=== PATIENT | male | born 1945 | race Caucasian/White ===

== ENCOUNTER 2020-06-02 13:00 | Observation (INO) | payer MEDICARE, SELFPAY ==
[2020-06-02] VITALS (13 sets, daily range): BP systolic 143–206; BP diastolic 70–103; PULSE 60–73; RESP 13–20; TEMP 36.7–36.8; O2SAT 96–98; BMI 18.2; BMI 23.7
--- NOTE | 2020-06-02 13:02 | ECG_ITS ---
APPROVED REPORT Exam: Resting ECG HR:62 bpm ECG Measurements Heart Rate 62 AXES UT 198 P 43 QRSd 106 QRS -35 QT 462 T 43 QTc 468 Conclusion Normal sinus rhythm Left axis deviation,LAHB Abnormal ECG Electronically signed by : Mal Garcia, 06/05/2020 16:24:49
--- NOTE | 2020-06-02 13:13 | XR_ITS ---
PROCEDURE: XR CHEST 2V CLINICAL HISTORY: soa COMPARISON: No exams were available for comparison FINDINGS: The cardiomediastinal silhouette and pulmonary vascularity are within normal limits. The lungs are clear without infiltrates, suspicious nodules, or pleural effusions. 5 mm nodular opacity is present in the left apex and may be due to a granuloma. There is some minimal left apical pleural thickening nonspecific. IMPRESSION: No acute findings. Dictated by: Blayne Alonzo MD 06/02/2020 15:15 Blayne Alonzo MD in [place] 06/02/2020 15:15
--- NOTE | 2020-06-02 13:14 | HMH.EDGENADL ---
ED Disposition Clinical Impression: Hypertensive emergency, Dizziness Disposition: Admitted As Inpatient Condition on Discharge: Good - Critical Care Critical Care Time: No Attestation: On , the high probability of a clinically significant, sudden or life threatening deterioration of the following system(s) required my full and direct attention, intervention and personal management. The time I documented below is in addition to time spent performing reported procedures but includes the following listed in this critical care notation. Medical Decision Making - Medical Records Medical records reviewed: Yes: I reviewed the patient's medical records. - [place] Inquiry Pt receiving controlled substance: No Vital Signs: 06/02/20 13:00 06/02/20 13:30 06/02/20 14:00 Temperature 98.1 F Temperature Source Oral Pulse Rate [Left Radial] 68 69 63 Respiratory Rate 13 20 Blood Pressure [Right Arm] 200/99 H 178/81 H 156/70 H Blood Pressure Mean [Right Arm] 132 113 98 Blood Pressure Source [Right Arm] Automatic Cuff Automatic Cuff Blood Pressure Position [Right Arm] Sitting Sitting 02 Sat by Pulse Oximetry 96 96 Oxygen Delivery Method Room Air Room Air 06/02/20 14:59 06/02/20 15:43 06/02/20 16:24 Temperature Temperature Source Pulse Rate [Left Radial] 61 61 60 Respiratory Rate 18 18 18 Blood Pressure [Right Arm] 143/73 H 169/92 H 170/87 H Blood Pressure Mean [Right Arm] 96 117 114 Blood Pressure Source [Right Arm] Automatic Cuff Automatic Cuff Automatic Cuff Blood Pressure Position [Right Arm] Sitting Sitting 02 Sat by Pulse Oximetry 96 97 98 Oxygen Delivery Method Room Air Room Air Room Air 06/02/20 19:28 06/02/20 20:07 Temperature Temperature Source Pulse Rate [Left Radial] 65 73 Respiratory Rate 16 18 Blood Pressure [Right Arm] 192/86 H 206/103 H Blood Pressure Mean [Right Arm] 121 137 Blood Pressure Source [Right Arm] Blood Pressure Position [Right Arm] 02 Sat by Pulse Oximetry 98 96 Oxygen Delivery Method Room Air Room Air - Lab Data Lab results reviewed: Yes: I reviewed the patient's lab results. Lab Results 06/02/20 13:45: WBC 6.8, RBC 5.48, Hgb 15.7, Hct 48.6, MCV 88.6, MCH 28.6, MCHC 32.3, RDW 13.1, Plt Count 126 L, MPV 10.0, Neut % (Auto) 78.8, Lymph % (Auto) 13.5, [place] % (Auto) 5.1, Eos % (Auto) 2.0, Baso % (Auto) 0.6, Neut # (Auto) 5.4, Lymph # (Auto) 0.9, [place] # (Auto) 0.4, Eos # (Auto) 0.1, Baso # (Auto) 0.0 06/02/20 13:45: Sodium 140, Potassium 4.8, Chloride 106, Carbon Dioxide 27, Anion Gap 11.8, BUN 20, Creatinine 1.60 H, Estimated Creat Clear 31, Estimated GFR 42 L, Est GFR ( Amer) 51 L, Glucose 104 H, Calcium 9.9, Total Bilirubin 0.5, AST 57, ALT 60, Alkaline Phosphatase 62, Troponin I < 0.01, Total Protein 7.4, Albumin 4.4, Globulin 3.0, Albumin/Globulin Ratio 1.5 06/02/20 16:11: Sodium 141, Potassium 5.0, Chloride 107, Carbon Dioxide 27, Anion Gap 12.0, BUN 19, Creatinine 1.50 H, Estimated Creat Clear 33, Estimated GFR 46 L, Est GFR ( Amer) 55 L, Glucose 102 H, Calcium 9.5, Troponin I 0.03 06/02/20 18:12: Troponin I 0.04 H Result diagrams: 06/02/20 13:45 06/02/20 16:11 Orders (Tests/Meds): ED MEDICATIONS Discontinued Medications Generic Name Dose Route Start Last Admin Trade Name Freq PRN Reason Stop Dose Admin Hydralazine HCl 10 mg 06/02/20 13:13 06/02/20 13:25 Hydralazine 20mg/Ml Vial IV 06/02/20 13:14 10 mg ONCE ONE Administration Hydralazine HCl 10 mg 06/02/20 20:02 06/02/20 20:04 Hydralazine 10mg Tablet PO 06/02/20 20:03 10 mg ONCE ONE Administration Lactated Ringer's 500 mls @ 999 mls/hr 06/02/20 14:30 06/02/20 18:11 Lactated Ringer's 1000 Ml Bag IV 06/02/20 15:00 Not Given .Q31M DENYS Sodium Chloride 1,000 mls @ 999 mls/hr 06/02/20 14:45 06/02/20 15:02 Sod Chlor 0.9% 1000ml Bag IV 06/02/20 15:45 999 mls/hr .Q1H1M DENYS Administration ORDERS Category Date Time Status Covid-19 IgG/Ig
[2020-06-02 13:51] LABS: Basophils % 0.6 % (0.1-2.0); Eosinophils # 0.1 K/mm3 (0.0-0.4); Hematocrit 48.6 % (42.0-52.0); Hemoglobin 15.7 g/dL (14.1-18.0); Lymphocytes # 0.9 K/mm3 (0.7-4.5); Lymphocytes % 13.5 % (10-50); Mean Corpuscular HGB Conc 32.3 g/dL (31.8-35.4); Mean Corpuscular Hemoglobin 28.6 pg (27.0-31.2); Mean Corpuscular Volume 88.6 fl (80-94); Monocytes # 0.4 K/mm3 (0.1-1.0); Monocytes % 5.1 % (1.7-9.3); Neutrophils # 5.4 K/mm3 (1.8-7.8); Neutrophils % 78.8 % (37.0-80.0); Platelet Count 126 K/mm3 (142-424); Red Blood Count 5.48 M/mm3 (4.60-6.20); Red Cell Distribution Width 13.1 % (11.5-17.5); White Blood Count 6.8 K/mm3 (4.8-10.8)
[2020-06-02 14:00] LABS: Alanine Aminotransferase 60 U/L (12-78); Albumin Level 4.4 g/dl (3.5-5.0); Albumin/Globulin Ratio 1.5 (1.1-1.8); Alkaline Phosphatase 62 U/L (38-126); Anion Gap 11.8 mEq/L (5-15); Aspartate Amino Transferase 57 U/L (17-59); Bilirubin,Total 0.5 mg/dl (0.2-1.3); Blood Urea Nitrogen 20 mg/dl (9-20); Calcium 9.9 mg/dl (8.4-10.2); Carbon Dioxide 27 mmol/L (22.0-30.0); Chloride 106 mmol/L (98-107); Creatinine Clearance Estimated 31 mL/min (50-200); Estimated Glomerular Filt Rate 42 ml/min (>60); GFR (African American) 51 ML/MIN (>60); Glucose 104 mg/dl (74-100); Potassium 4.8 mmoL/L (3.5-5.1); Sodium 140 mmol/L (136-145); Total Protein,Serum 7.4 g/dl (6.3-8.2)
[2020-06-02 14:13] LABS: Troponin I < 0.01 ng/ml (0.00-0.034)
[2020-06-02 16:22] LABS: Chloride 107 mmol/L (98-107)
[2020-06-02 16:23] LABS: Sodium 141 mmol/L (136-145)
[2020-06-02 16:25] LABS: Blood Urea Nitrogen 19 mg/dl (9-20); Creatinine Clearance Estimated 33 mL/min (50-200); Estimated Glomerular Filt Rate 46 ml/min (>60); GFR (African American) 55 ML/MIN (>60)
[2020-06-02 16:26] LABS: Calcium 9.5 mg/dl (8.4-10.2); Carbon Dioxide 27 mmol/L (22.0-30.0); Glucose 102 mg/dl (74-100)
[2020-06-02 16:38] LABS: Troponin I 0.03 ng/ml (0.00-0.034)
--- NOTE | 2020-06-02 16:59 | ECG_ITS ---
APPROVED REPORT Exam: Resting ECG HR:59 bpm ECG Measurements Heart Rate 59 AXES CO 192 P 31 QRSd 104 QRS -39 QT 496 T 19 QTc 491 Conclusion Sinus bradycardia Left axis deviation,LAHB Pulmonary disease pattern Incomplete right bundle branch block Prolonged QT Abnormal ECG Electronically signed by : Mal Garcia, 06/05/2020 16:21:16
[2020-06-02 18:42] LABS: Troponin I 0.04 ng/ml (0.00-0.034)
--- NOTE | 2020-06-02 20:07 | PC.NURSE ---
RN medicated pt per MD request for BP
--- NOTE | 2020-06-02 20:08 | PC.NURSE ---
consulting with Dr Baptiste
[2020-06-02 20:35] LABS: Coronavirus 19 IgG Antibody Negative (Negative); Coronavirus 19 IgM Antibody Negative (Negative)
--- NOTE | 2020-06-02 22:07 | PC.NURSE ---
patient arrived to floor via wheelchair @ 21:03.
[2020-06-02 23:49] LABS: Troponin I 0.11 ng/ml (0.00-0.034)
[2020-06-03] VITALS (7 sets, daily range): BP systolic 142–175; BP diastolic 62–85; PULSE 60–78; RESP 16–18; TEMP 36.8–37; O2SAT 95–100; BMI 23.8
--- NOTE | 2020-06-03 03:35 | PC.NURSE ---
Pt A&O this shift, Lung sounds clear BLT throughout, Bowel sounds present in all 4 quadrants. Pt has a history of chronic pain, Pt has complained of Lt sided pain during shift, Medications given per MAR, Pt had a period of dry heaving and nausea nothing noted in emesis bag, Pt medicated per MAR, IV patent and intact running at 75mL/hr. Pt gets up ab carlitos to go to the bathroom on his own.
--- NOTE | 2020-06-03 03:43 | PC.NURSE ---
Pt has slept throughout the shift, Pt is A&O to person, birthdate, age, and year, pt does not know he is in the hospital. Lung sounds clear, bowel sounds present in all 4 quadrant. Pt's B/P are stable during this shift. IV intact and patent, LR running @50ml/hr, Pt able to walk to go to bathroom, bed alarm on to assist with IV pole, Pt has voided yellow urine during shift
--- NOTE | 2020-06-03 06:40 | PC.NURSE ---
Lab at bedside drawing blood
[2020-06-03 07:33] LABS: Basophils % 0.4 % (0.1-2.0); Chloride 108 mmol/L (98-107); Eosinophils # 0.1 K/mm3 (0.0-0.4); Eosinophils % 1.2 % (0.1-12.0); Hematocrit 46.1 % (42.0-52.0); Hemoglobin 15.7 g/dL (14.1-18.0); Lymphocytes # 1.5 K/mm3 (0.7-4.5); Lymphocytes % 15.7 % (10-50); Mean Corpuscular Hemoglobin 29.2 pg (27.0-31.2); Mean Corpuscular Volume 85.9 fl (80-94); Mean Platelet Volume 10.4 fl (7.4-10.4); Monocytes # 0.6 K/mm3 (0.1-1.0); Neutrophils # 7.4 K/mm3 (1.8-7.8); Neutrophils % 76.6 % (37.0-80.0); Platelet Count 142 K/mm3 (142-424); Red Blood Count 5.36 M/mm3 (4.60-6.20); Red Cell Distribution Width 13.9 % (11.5-17.5); Sodium 138 mmol/L (136-145); White Blood Count 9.7 K/mm3 (4.8-10.8)
[2020-06-03 07:34] LABS: Potassium 4.2 mmoL/L (3.5-5.1)
[2020-06-03 07:36] LABS: Blood Urea Nitrogen 19 mg/dl (9-20); Creatinine Clearance Estimated 48 mL/min (50-200); Estimated Glomerular Filt Rate 50 ml/min (>60); GFR (African American) 60 ML/MIN (>60)
[2020-06-03 07:37] LABS: Anion Gap 10.2 mEq/L (5-15); Calcium 9.3 mg/dl (8.4-10.2); Carbon Dioxide 24 mmol/L (22.0-30.0); Glucose 91 mg/dl (74-100); Magnesium 1.7 mg/dl (1.6-2.3)
--- NOTE | 2020-06-03 09:14 | HMH.PHAVTE ---
[facility] VTE Monitoring - Patient Demographics Admission date: 06/02/20 Report Date: 06/03/20 Time: 09:14 Allergies/Adverse Reactions: Patient Allergies No Known Allergies Allergy (Verified 06/02/20 13:20) Height: 1.75 m Weight: 72.802 kg Patient Problems: Current Active Problems Hypertensive emergency (Acute) Dizziness (Acute) - VTE Risk Labs: VTE Related Lab Results Hgb 15.7 g/dL (14.1-18.0) 06/03/20 06:45 Hct 46.1 % (42.0-52.0) 06/03/20 06:45 Plt Count 142 K/mm3 (142-424) 06/03/20 06:45 BUN 19 mg/dl (9-20) 06/03/20 06:45 Creatinine 1.40 mg/dl (0.66-1.25) H 06/03/20 06:45 Estimated Creat Clear 48 mL/min (50-200) 06/03/20 06:45 - Prophylaxis VTE Prophylaxis Ordered?: Yes Types of VTE Prophylaxis: TEDS Knee High, Pharmacological Location of Applied Device: Bilateral Lower Extremeties Pharmacologic Type: Enoxaparin
--- NOTE | 2020-06-03 10:17 | HMH.PHAINT ---
MEDICATION RECONCILIATION COMPLETED ON PATIENT USING EXTERNAL FILL HISTORY FROM PHARMACY. -KARI ISABEL, DESTINEED
--- NOTE | 2020-06-03 10:17 | HMH.HP ---
*Admission Date: 06/02/20 *Chief complaint: dizzyness *History of present illness: this pt who is resident of [facility] had episode of dizzyness and elevated bp w/o chest pain or syncope - he was seen in the ed -t states that he started feeling dizzy like the room was going black and he went to the floor, staff at [facility] [place] took his blood pressure it was up to SBP 200s. Denies any injury This is a 75-year-old male with a history of major depressive disorder in a long-term facility for this, history of hypertension, heart disease presenting after a vague episode of generalized weakness that occurred briefly at his facility prior to arrival. Patient states that he lost his 3 weeks ago and has been under much stress because of this and has had several episodes of anxiety. He presents essentially asymptomatic here. No fever, chills, nausea, vomiting, headache, blurry vision, double vision, numbness, tingling, chest pain, cough, focal weakness, abdominal pain. He did have some shortness of breath earlier but this has resolved. No suicidal or homicidal ideation. -year-old male presenting with dizziness. Hypertensive on arrival and bradycardic requiring total of 20 mg of IV hydralazine for blood pressure control. White blood cell count, glucose, electrolytes are nonactionable. EKG shows left axis deviation but no evidence of acute ischemia. Troponin has been trending up from undetectable to 0.03 and then 0.04. Patient is still hypertensive although this is improved. Chest x-ray is negative for acute disease. Given his symptoms and his elevated blood pressure and troponin, will admit for hypertensive emergency further work-up and management. Patient remained stable in my care.pt was admitted for treatment and eval [facility] History I have reviewed the patient's past medical history: Yes Medical History: Reports:: Hypertension Denies:: Diabetes Mellitus Type 1, Diabetes Mellitus Type 2 *Have you ever received a pneumonia vaccine?: No *Have you received a flu vaccine this season?: No Other Surgeries: Yes: No Previous Surgery - *Social History Last grade of school completed: Some college Smoking Status: Never smoker Alcohol Intake: never *Occupational Status:: retired *Travel in the last 8 weeks: None Family Hx:: Unable to obtain Review of Systems - Review of Systems Review of systems:: pertinent systems reviewed and negative unless documented below - Constitutional Denies fever(s) - Eyes Denies change in vision - ENT Denies pain with swallowing - *Cardiovascular Denies chest pain - *Respiratory Denies cough - *Gastrointestinal Denies abdominal pain - *Genitourinary Denies blood in urine - *Musculoskeletal Denies joint pain - Integumentary/Breasts Denies rash - *Neurologic Reports dizziness, Denies localized weakness, Denies seizure-like activity - Psychiatric Reports anxiety Meds Home Medications Medication Instructions Recorded Confirmed Type Apixaban [Eliquis] 5 mg PO BID 06/02/20 06/02/20 History Donepezil HCl [Donepezil ODT 10mg] 10 mg PO DAILY 06/02/20 06/02/20 History Fenofibrate Nanocrystallized 48 mg PO DAILY 06/02/20 06/02/20 History [Fenofibrate] Metoprolol Succinate [Metoprolol 100 mg PO DAILY 06/02/20 06/02/20 History Succinate 100mg Tablet*] Mirtazapine 30 mg PO HS 06/02/20 06/03/20 History Oxybutynin Chloride [Ditropan Xl] 5 mg PO TID 06/02/20 06/02/20 History buPROPion HCL [Wellbutrin SR 75mg 75 mg PO BID 06/02/20 06/02/20 History Tablet] lisinopriL [Lisinopril 40mg Tablet] 40 mg PO DAILY 06/02/20 06/02/20 History Amiodarone HCl [Cordarone 200mg 200 mg PO DAILY 06/03/20 06/03/20 History tablet] Allergies Allergy/AdvReac Type Severity Reaction Status Date / Time No Known Allergies Allergy Verified 06/02/20 13:20 Exam Vital signs and Labs for Last 24 Hours: Temp Pulse Resp BP Pulse Ox 98.6 F 68 16 150/78 H 97 06/03/20 08:00 06/03
--- NOTE | 2020-06-03 16:50 | PC.NURSE ---
PT IS RESTING IN BED. PT HAS BEEN AMBULATING AROUND THE ROOM AND TO THE BATHROOM. NO COMPLAINTS OF DISCOMFORT. PT REQUESTED TO HAVE ALL OF HIS MEDICATIONS THAT HE USUALLY TAKES ON A DAILY BASIS. NOTIFIED PCP AND HE STATED IT WOULD BE OKAY TO ORDER PT'S HOME MEDICATIONS. PT STATES HE HAS A BIG PROBLEM WITH DEPRESSION SINCE HIS . PT HAS ANSWERED ALL QUESTIONS APPROPRIATELY. LUNG SOUNDS CLEAR. ABDOMEN SOFT WITH ACTIVE BOWEL SOUNDS. VSS. WILL CONTINUE TO MONITOR.
[2020-06-04] VITALS (8 sets, daily range): BP systolic 123–148; BP diastolic 65–84; PULSE 61–90; RESP 14–20; TEMP 36.2–36.9; O2SAT 95–99; BMI 23.3
--- NOTE | 2020-06-04 05:59 | PC.NURSE ---
shift summary, no acute changes since prior assesment, pt has rested well t/o shift, systolic BP was 175 at beginning of shift, has been 123-148 the other two vital checks, HR has been 60-80, pt has ambulated to bathroom independently, when pt ambulates to bathroom he disconnects his IV and leaves it hanging on the pole, fluids have been found all over the floor twice this shift, pt admits to disconnecting IV, pt educated on importance of ringing out to go to the bathroom and for assistance with his pole so his IV does not have to be disconnected, pt acknowledges understanding
[2020-06-04 06:13] LABS: Basophils % 0.4 % (0.1-2.0); Eosinophils # 0.1 K/mm3 (0.0-0.4); Eosinophils % 1.4 % (0.1-12.0); Hematocrit 46.7 % (42.0-52.0); Hemoglobin 15.9 g/dL (14.1-18.0); Lymphocytes # 1.6 K/mm3 (0.7-4.5); Lymphocytes % 17.1 % (10-50); Mean Corpuscular Hemoglobin 29.6 pg (27.0-31.2); Mean Corpuscular Volume 87.1 fl (80-94); Mean Platelet Volume 10.6 fl (7.4-10.4); Monocytes # 0.5 K/mm3 (0.1-1.0); Monocytes % 5.6 % (1.7-9.3); Neutrophils # 7.1 K/mm3 (1.8-7.8); Neutrophils % 75.5 % (37.0-80.0); Platelet Count 150 K/mm3 (142-424); Red Blood Count 5.36 M/mm3 (4.60-6.20); Red Cell Distribution Width 13.9 % (11.5-17.5); White Blood Count 9.4 K/mm3 (4.8-10.8)
[2020-06-04 06:23] LABS: Anion Gap 14.1 mEq/L (5-15); Blood Urea Nitrogen 25 mg/dl (9-20); Calcium 9.4 mg/dl (8.4-10.2); Carbon Dioxide 21 mmol/L (22.0-30.0); Chloride 108 mmol/L (98-107); Creatinine Clearance Estimated 44 mL/min (50-200); Estimated Glomerular Filt Rate 46 ml/min (>60); GFR (African American) 55 ML/MIN (>60); Glucose 99 mg/dl (74-100); Magnesium 1.7 mg/dl (1.6-2.3); Potassium 4.1 mmoL/L (3.5-5.1); Sodium 139 mmol/L (136-145)
[2020-06-04 06:40] LABS: T4 (Thyroxine) 11.9 ug/dl (5.53-11.0)
[2020-06-04 06:53] LABS: Thyroid Stimulating Hormone 1.23 uIU/mL (0.465-4.68)
--- NOTE | 2020-06-04 14:30 | HMH.DCSUM ---
General - General Admission date:: 06/02/20 Discharge date: 06/04/20 HPI HPI: this pt who is resident of [facility] had episode of dizzyness and elevated bp w/o chest pain or syncope - he was seen in the ed -t states that he started feeling dizzy like the room was going black and he went to the floor, staff at [facility] took his blood pressure it was up to SBP 200s. Denies any injury This is a 75-year-old male with a history of major depressive disorder in a long-term facility for this, history of hypertension, heart disease presenting after a vague episode of generalized weakness that occurred briefly at his facility prior to arrival. Patient states that he lost his 3 weeks ago and has been under much stress because of this and has had several episodes of anxiety. He presents essentially asymptomatic here. No fever, chills, nausea, vomiting, headache, blurry vision, double vision, numbness, tingling, chest pain, cough, focal weakness, abdominal pain. He did have some shortness of breath earlier but this has resolved. No suicidal or homicidal ideation. -year-old male presenting with dizziness. Hypertensive on arrival and bradycardic requiring total of 20 mg of IV hydralazine for blood pressure control. White blood cell count, glucose, electrolytes are nonactionable. EKG shows left axis deviation but no evidence of acute ischemia. Troponin has been trending up from undetectable to 0.03 and then 0.04. Patient is still hypertensive although this is improved. Chest x-ray is negative for acute disease. Given his symptoms and his elevated blood pressure and troponin, will admit for hypertensive emergency further work-up and management. Patient remained stable in my care.pt was admitted for treatment and eval Hospital Course Hospital Course: And had a peak blood pressure of 206/103. Upon initial presentation he had some dizziness. He was maintained on metoprolol and amiodarone. His blood pressures subsequently normalized. On the day of his discharge his systolic pressure was in the high 120s, low 140s. He had no chest pain, no focal neurologic deficits. There was no dyspnea. There was no altered mental status. Patient relays that he recently lost his and is experiencing profound grief. Was noted to have a renal insufficiency with a creatinine 1.5-1.6 range. He did have elevated troponins, EKG was without ischemic features and he had no chest pain or dyspnea while here. He has been up out of bed, ambulating about the room. He is in no distress and answers questions appropriately. Objective Vital signs: Temp Pulse Resp BP Pulse Ox 98.2 F 90 16 128/84 96 06/04/20 11:49 06/04/20 12:00 06/04/20 11:49 06/04/20 11:49 06/04/20 11:49 no acute distress - *Routine HEENT Exam Head: Present: normocephalic Eye: Present: EOMI, PERRL ENT: Present: mucous membranes moist - *Routine Neck Exam Present: supple - *Routine Respiratory Exam Present: CTA bilaterally - *Routine Cardiovascular Exam Present: RRR, murmur - *Routine Abdominal Exam Present: soft, normoactive bowel sounds. Absent: tenderness - *Routine Extremities Exam Absent: cyanosis, clubbing, edema - *Routine Skin Exam Present: warm. Absent: rash Results Labs on day of discharge: Labs from last 24 hours 06/04/20 06/04/20 06:00 06:00 WBC 9.4 RBC 5.36 Hgb 15.9 Hct 46.7 MCV 87.1 MCH 29.6 MCHC 34.0 RDW 13.9 Plt Count 150 MPV 10.6 H Neut % (Auto) 75.5 Lymph % (Auto) 17.1 [place] % (Auto) 5.6 Eos % (Auto) 1.4 Baso % (Auto) 0.4 Neut # (Auto) 7.1 Lymph # (Auto) 1.6 [place] # (Auto) 0.5 Eos # (Auto) 0.1 Baso # (Auto) 0.0 Sodium 139 Potassium 4.1 Chloride 108 H Carbon Dioxide 21 L Anion Gap 14.1 BUN 25 H D Creatinine 1.50 H Estimated Creat Clear 44 Estimated GFR 46 L Est GFR ( Amer) 55 L Glucose 99 Calcium 9.4 Magnesium 1.7 TSH 1.
--- NOTE | 2020-06-04 15:50 | PC.NURSE ---
PT IS RESTING IN BED. NO COMPLAINTS OF DISCOMFORT. PT HAS BEEN AMBULATING TO THE BATHROOM AND AROUND THE ROOM. PT HAS MADE SEVERAL COMMENTS THIS SHIFT ABOUT HOW [facility] ( PT STATES THE PLACE CANNOT KEEP HELP THERE AND ALL THEY CARE ABOUT IS GETTING MONEY) WAS GOING TO DISCHARGE PT THIS SHIFT BUT STATED YESTERDAY THAT PT WOULD NEED TO STAY TILL FRIDAY FOR ECHO AND TO SEE CARDIOLOGY. LUNG SOUNDS CLEAR. ABDOMEN SOFT/ NON TENDER WITH ACTIVE BOWEL SOUNDS. PT STATED HE HAD A BOWEL MOVEMENT THIS MORNING. VSS. SHOWER AND LINEN CHANGE THIS SHIFT. WILL CONTINUE TO MONITOR.
[2020-06-05] VITALS (22 sets, daily range): BP systolic 101–182; BP diastolic 48–98; PULSE 50–83; RESP 17–20; TEMP 36.7–36.9; O2SAT 92–100; BMI 23.7
--- NOTE | 2020-06-05 | IR_ITS ---
APPROVED REPORT Patient Location: Inpatient PROCEDURES Left heart catheterization Left ventriculogram Selective coronary angiogram INDICATION Acute non-ST elevation myocardial infarction Informed consent was obtained prior to the procedure. COMPLICATIONS NONE Estimated Blood Loss: LESS THAN 10 ML TECHNIQUE One percent lidocaine used to anesthetize the right anterior aspect of the wrist. The right radial artery was accessed via the Seldinger technique. A 6 Azerbaij[place] sheath was placed in the right radial artery. 2.5 mg of verapamil, 800 mcg of nitroglycerin, 1mg Lidocaine and 5000 U Heparin were given through the arterial sheath. The Poppa catheter was also used to perform left heart catheterization, left ventriculogram and selective coronary angiogram. At the end of the procedure the sheath was removed good hemostasis was achieved using Traclet band, patient was transferred to the postop holding area in stable condition. ANGIOGRAPHIC RESULTS The left main artery Normal The left anterior descending artery Has proximal smooth 10 to 20% stenosis in the mid vessel 20 to 30% stenosis The circumflex artery Nondominant yet still large and normal The right coronary artery dominant and normal The CAIN ventriculogram reveals Normal 65% The left ventricular end-diastolic pressure 10 mmHg IMPRESSION Mild nonflow-limiting coronary disease as described above Normal ejection fraction Normal left ventricular end-diastolic pressure PLAN 1. Medical management Electronically signed by : Logan France, 06/05/2020 10:37:16
--- NOTE | 2020-06-05 04:40 | PC.NURSE ---
shift summary, no acute changes since prior assessment, pt complained of nausea one time this shift and was treated per MAR, systolic BP 137-139, HR 61-70, pt has had no complaints of SOA or chest pain, pt has ambulated to bathroom multiple times this shift
--- NOTE | 2020-06-05 07:52 | HMH.CNCARD ---
History of Present Illness Consult date: 06/05/20 Requesting physician: Augustine Baptiste Consult reason: atrial fibrillation, shortness of breath Chief complaint: Elevated troponins, A. fib, SOA Additional Medical History:: 1. Hypertension 2. Hyperlipidemia 3. History of paroxysmal atrial fibrillation A. On Eliquis therapy 4. Major depression related to the of his earlier this year 5. CKD, stage 3 with Cr 1.4-1.6 and GFR 42-50 History of present illness: this pt who is resident of [facility] had episode of dizzyness and elevated bp w/o chest pain or syncope - he was seen in the ed -t states that he started feeling dizzy like the room was going black and he went to the floor, staff at [facility] took his blood pressure it was up to SBP 200s. Denies any injury This is a 75-year-old male with a history of major depressive disorder in a long-term facility for this, history of hypertension, heart disease presenting after a vague episode of generalized weakness that occurred briefly at his facility prior to arrival. Patient states that he lost his 3 weeks ago and has been under much stress because of this and has had several episodes of anxiety. He presents essentially asymptomatic here. No fever, chills, nausea, vomiting, headache, blurry vision, double vision, numbness, tingling, chest pain, cough, focal weakness, abdominal pain. He did have some shortness of breath earlier but this has resolved. No suicidal or homicidal ideation. -year-old male presenting with dizziness. Hypertensive on arrival and bradycardic requiring total of 20 mg of IV hydralazine for blood pressure control. White blood cell count, glucose, electrolytes are nonactionable. EKG shows left axis deviation but no evidence of acute ischemia. Troponin has been trending up from undetectable to 0.03 and then 0.04. Patient is still hypertensive although this is improved. Chest x-ray is negative for acute disease. Given his symptoms and his elevated blood pressure and troponin, will admit for hypertensive emergency further work-up and management. Patient remained stable in my care.pt was admitted for treatment and eval The above per Dr. Baptiste Patient is somewhat of a difficult historian and that he feels like most of his symptoms are related to anxiety and constipation. After multiple questions patient does admit to some shortness of breath with exertion along with some discomfort in his shoulders and back that resolves with rest. He denies chest pain, pressure or tightness. Patient denies tobacco use or history of diabetes. EKG on admission shows sinus rhythm, left axis deviation, incomplete right bundle branch block with no acute ST segment changes. Initial troponins within normal limits x2 and then elevated to 0.04, 0.11 and 0.10. [facility] History Medical History: Reports:: Hypertension Denies:: Diabetes Mellitus Type 1, Diabetes Mellitus Type 2 *Have you ever received a pneumonia vaccine?: No *Have you received a flu vaccine this season?: No Other Surgeries: Yes: No Previous Surgery - *Social History Last grade of school completed: Some college Smoking Status: Never smoker Alcohol Intake: never *Occupational Status:: retired *Travel in the last 8 weeks: None Family Hx:: Unable to obtain Meds Home Medications Medication Instructions Recorded Confirmed Type Apixaban [Eliquis] 5 mg PO BID 06/02/20 06/02/20 History Donepezil HCl [Donepezil ODT 10mg] 10 mg PO DAILY 06/02/20 06/02/20 History Fenofibrate Nanocrystallized 48 mg PO DAILY 06/02/20 06/02/20 History [Fenofibrate] Metoprolol Succinate [Metoprolol 100 mg PO DAILY 06/02/20 06/02/20 History Succinate 100mg Tablet*] Mirtazapine 30 mg PO HS 06/02/20 06/03/20 History Oxybutynin Chloride [Ditropan Xl] 5 mg PO TID 06/02/20 06/02/20 History buPROPion HCL [Wellbutrin SR 75mg 75 mg PO BID 06/02/20 06/02/20 History Tablet] lisinopriL [Lisinopril 40mg Tablet] 40 mg PO DAILY 06/02/20
--- NOTE | 2020-06-05 08:00 | CA_ITS ---
APPROVED REPORT EXAM: Comprehensive 2D, Doppler, and color-flow Echocardiogram Dump Motorman: Chelsea Anderson RDCS Ht: 5 ft 8 in Wt: 160lbs BSA: 1.86 BP: 130/80 mmHg Indications: Hyperlipidemia, Hypertension/HDD 2D Dimensions LVOT 2.37 cm (M/F) 1.5-2.5 M-Mode Dimensions RVDd 3.12 cm (0.9-2.6) LA Diam 4.80 cm (1.9-4.0) LVDd 5.36 cm (3.5-5.7) Ao Diam 3.77 cm (2.0-3.7) LVDs 4.64 cm (3.5-5.7) IVSd 0.95 cm (0.6-1.1) PWd 1.10 cm (0.6-1.1) EF (Teich) 28.50% FS 13.40% EDV (Teich) 138.90 mL ESV (Teich) 99.30 mL LV Diastology E Decel Time 380.00 (160-240 msec) E/A Ratio 0.59 MED E' 4.70 (< 7 cm/sec) E'/MED E' Ratio 10.94 (>14) LAT E' 8.10 (<10 cm/sec) E/LAT E' Ratio 6.35 (>14) Aortic Valve AI PHT 527.00 ms Mitral Valve MV E Max Km. 51.00 (40-130 cm/s) MV A Velocity 87.00 (40-130 cm/s) E/A Ratio 0.59 MV Decel. Time 380.00 (160-240 ms) MV PHT 111.00 ms Left Ventricle Left atrium is mildly enlarged, left ventricle is normal size, mild concentric left ventricular hypertrophy, visually estimated ejection fraction 55% with no regional wall motion abnormality, grade 1 diastolic dysfunction seen without tissue Doppler evidence of raise left atrial pressure. Right Ventricle Right atrium and right ventricle are normal size and contractility. Aortic Valve Aortic valve is thickened and calcified, there is no aortic stenosis, there is mild aortic insufficiency. Mitral Valve Mitral valve is grossly normal, there is mild mitral regurgitation. Tricuspid Valve Tricuspid valve is grossly normal, there is mild tricuspid regurgitation, tricuspid regurgitation jet velocity is inadequate for calculation of the right ventricular systolic pressure. Pulmonic Valve Pulmonic valve is poorly visualized. Great Vessels Aortic root is normal size. Pericardium No significant pericardial effusion noted. Conclusion 1. Mildly enlarged left atrium, normal left ventricular size, mild concentric left ventricular hypertrophy, visually estimated ejection fraction 55% with no regional wall motion abnormality, grade 1 diastolic dysfunction seen without tissue Doppler evidence of raise left atrial pressure. 2. Mild aortic, mild mitral and tricuspid regurgitation. 3. No significant pericardial effusion noted. Electronically signed by : Isidro Smiley, 06/06/2020 05:14:39
--- NOTE | 2020-06-05 08:33 | PC.NURSE ---
dr. garcias and [facility] both notified of elevated b/p. no new orders at this time
--- NOTE | 2020-06-05 10:03 | PC.NURSE ---
PT TO PRODUCTION LEAD AT THIS TIME, REPORT GIVEN TO SHANNAN PATRICIA RN
--- NOTE | 2020-06-05 10:48 | PC.NURSE ---
REPORT RECEIVED FROM Blue DE RN FROM INCIDENT HANDLER. PT DID NOT RECEIVE ANY STENTS, STABLE AT THIS TIME. 103/64 B/P, HR 70, 92% O2 SAT ON ROOM AIR, REPORTS PT IS DROWSY
--- NOTE | 2020-06-05 11:23 | PC.NURSE ---
BLOOD PRESSURES REPORTED POST HEART CATH, ORDERS FOR NORVASC 5MG PO X 1 DOSE FOR B/P PER Loida VAN. EDWAR
[2020-06-05 11:33] LABS: Basophils % 0.4 % (0.1-2.0); Eosinophils # 0.1 K/mm3 (0.0-0.4); Eosinophils % 1.4 % (0.1-12.0); Hemoglobin 15.5 g/dL (14.1-18.0); Lymphocytes # 1.4 K/mm3 (0.7-4.5); Lymphocytes % 13.3 % (10-50); Mean Corpuscular HGB Conc 33.7 g/dL (31.8-35.4); Mean Corpuscular Hemoglobin 29.2 pg (27.0-31.2); Mean Corpuscular Volume 86.7 fl (80-94); Monocytes # 0.6 K/mm3 (0.1-1.0); Monocytes % 5.7 % (1.7-9.3); Neutrophils # 8.1 K/mm3 (1.8-7.8); Neutrophils % 79.4 % (37.0-80.0); Platelet Count 147 K/mm3 (142-424); Red Cell Distribution Width 13.6 % (11.5-17.5); White Blood Count 10.3 K/mm3 (4.8-10.8)
--- NOTE | 2020-06-05 13:51 | HMH.DCSUM ---
General - General Admission date:: 06/02/20 Discharge date: 06/05/20 HPI HPI: this pt who is resident of [facility] had episode of dizzyness and elevated bp w/o chest pain or syncope - he was seen in the ed -t states that he started feeling dizzy like the room was going black and he went to the floor, staff at [facility] took his blood pressure it was up to SBP 200s. Denies any injury This is a 75-year-old male with a history of major depressive disorder in a long-term facility for this, history of hypertension, heart disease presenting after a vague episode of generalized weakness that occurred briefly at his facility prior to arrival. Patient states that he lost his 3 weeks ago and has been under much stress because of this and has had several episodes of anxiety. He presents essentially asymptomatic here. No fever, chills, nausea, vomiting, headache, blurry vision, double vision, numbness, tingling, chest pain, cough, focal weakness, abdominal pain. He did have some shortness of breath earlier but this has resolved. No suicidal or homicidal ideation. -year-old male presenting with dizziness. Hypertensive on arrival and bradycardic requiring total of 20 mg of IV hydralazine for blood pressure control. White blood cell count, glucose, electrolytes are nonactionable. EKG shows left axis deviation but no evidence of acute ischemia. Troponin has been trending up from undetectable to 0.03 and then 0.04. Patient is still hypertensive although this is improved. Chest x-ray is negative for acute disease. Given his symptoms and his elevated blood pressure and troponin, will admit for hypertensive emergency further work-up and management. Patient remained stable in my care.pt was admitted for treatment and eval Hospital Course Hospital Course: pt has did well and had elevated troponin and was seen by [facility] complaint: Elevated troponins, A. fib, SOA Additional Medical History:: 1. Hypertension 2. Hyperlipidemia 3. History of paroxysmal atrial fibrillation A. On Eliquis therapy 4. Major depression related to the of his earlier this year 5. CKD, stage 3 with Cr 1.4-1.6 and GFR 42-50 History of present illness: this pt who is resident of [facility] had episode of dizzyness and elevated bp w/o chest pain or syncope - he was seen in the ed -t states that he started feeling dizzy like the room was going black and he went to the floor, staff at [facility] took his blood pressure it was up to SBP 200s. Denies any injury This is a 75-year-old male with a history of major depressive disorder in a long-term facility for this, history of hypertension, heart disease presenting after a vague episode of generalized weakness that occurred briefly at his facility prior to arrival. Patient states that he lost his 3 weeks ago and has been under much stress because of this and has had several episodes of anxiety. He presents essentially asymptomatic here. No fever, chills, nausea, vomiting, headache, blurry vision, double vision, numbness, tingling, chest pain, cough, focal weakness, abdominal pain. He did have some shortness of breath earlier but this has resolved. No suicidal or homicidal ideation. -year-old male presenting with dizziness. Hypertensive on arrival and bradycardic requiring total of 20 mg of IV hydralazine for blood pressure control. White blood cell count, glucose, electrolytes are nonactionable. EKG shows left axis deviation but no evidence of acute ischemia. Troponin has been trending up from undetectable to 0.03 and then 0.04. Patient is still hypertensive although this is improved. Chest x-ray is negative for acute disease. Given his symptoms and his elevated blood pressure and troponin, will admit for hypertensive emergency further work-up and management. Patient remained stable in my care.pt was admitted for treatment and eval The above per Dr. Baptiste Patient is somewhat of a difficul
--- NOTE | 2020-06-05 15:32 | PC.NURSE ---
va at dr. garcias's office notified of increased b/p since heart cath and after norvasc 5mg around 1140. pt has discharge order in place, states she will let dr. garcias know.
--- NOTE | 2020-06-05 15:42 | PC.NURSE ---
[facility] notified of increased b/p s/p heart cath. orders for repeat dose of norvasc 5mg po at this time, order faxed to pharmacy
--- NOTE | 2020-06-05 15:52 | PC.NURSE ---
radial traclet removed at this time with rain doss rn. site unremarkable. no swelling, minimal bruising at site. radial pulse easily palpable 2+. site cleansed with chloraprep, sterile 2x2 and tegaderm applied
--- NOTE | 2020-06-05 16:55 | PC.NURSE ---
dr. senior supervisor contact and service clerks for julián at this time. reported continued elevated b/p after repeat dose of norvasc. reported that pt has discharge order to return to [facility]. states discharge order to be delayed at this time. dr. senior should see julián in about 1 hour at a med staff meeting and will inform of concerns. no new orders at this time
== END 2020-06-05 18:50 | disposition home or self-care (01) ==
LOC: ER 20:23 → 2ND 20:27
PROVIDERS: Internal Medicine; Admitting Provider Emergency Medicine; Emergency Provider Physician Assistant; PCP Emergency Medicine; Visit Provider Emergency Medicine
DX: I16.1 Hypertensive emergency (principal); I12.9 Hypertensive chronic kidney disease with stage 1 through stage 4 chronic kidney disease, or unspecified chronic kidney disease; I48.0 Paroxysmal atrial fibrillation; Z79.01 Long term (current) use of anticoagulants; N18.30 Chronic kidney disease, stage 3 unspecified; E03.9 Hypothyroidism, unspecified; Z79.899 Other long term (current) drug therapy
CPT/HCPCS: 36415; 71046; 80048; 80053; 83735; 84436; 84443; 84484; 85025; 86328; 93005; 93306; 93458; 96365; 96366; 99152; 99284; C1725; C1769; G0378; J1644; J2405; Q9967

== ENCOUNTER → 2020-06-13 10:58 | Outpatient (CLI) | payer MEDICARE, SELFPAY ==
[2020-06-13 11:38] LABS: Alanine Aminotransferase 50 U/L (12-78); Albumin Level 4.2 g/dl (3.5-5.0); Alkaline Phosphatase 65 U/L (38-126); Aspartate Amino Transferase 41 U/L (17-59); Bilirubin,Direct 0.1 mg/dl (0.0-0.4); Bilirubin,Indirect 0.4 mg/dL (0.0-0.9); Bilirubin,Total 0.5 mg/dl (0.2-1.3); Bilirubin,Unconjugated 0.5 mg/dL (0.0-1.1); Chol/HDL Ratio 4.2 (1-3.5); Cholesterol 167 mg/dl (140-200); HDL Cholesterol 40 mg/dl (40-60); Triglycerides 370 mg/dl (30-150); VLDL Cholesterol 74 mg/dL (0-40)
[2020-06-13 11:50] LABS: Direct LDL Cholesterol 97.61 mg/dL (100-129)
== END ==
PROVIDERS: Visit Provider Urology
DX: E78.5 Hyperlipidemia, unspecified (principal); I10 Essential (primary) hypertension; I25.10 Atherosclerotic heart disease of native coronary artery without angina pectoris; N28.9 Disorder of kidney and ureter, unspecified
CPT/HCPCS: 36415; 80061; 80076

== ENCOUNTER → 2021-03-13 11:19 | Outpatient (CLI) | payer MEDICARE, SELFPAY ==
--- NOTE | 2021-03-13 11:26 | XR_ITS ---
PROCEDURE: XR CHEST 2V CLINICAL HISTORY: on amio therapy COMPARISON: CR XR CHEST 2V from 06/02/2020 FINDINGS: The cardiomediastinal silhouette and pulmonary vascularity are within normal limits. The lungs are clear without infiltrates, suspicious nodules, or pleural effusions. No change small left apical nodule Mild thoracic kyphosis unchanged IMPRESSION: No change with no acute finding Dictated by: Blayne Alonzo MD 03/13/2021 12:28 Blayne Alonzo MD in [facility] 03/13/2021 12:28
[2021-03-13 12:42] LABS: Alanine Aminotransferase 41 U/L (12-78); Albumin Level 4.3 g/dl (3.5-5.0); Alkaline Phosphatase 67 U/L (38-126); Aspartate Amino Transferase 56 U/L (17-59); Bilirubin,Direct 0.7 mg/dl (0.0-0.4); Bilirubin,Total 0.7 mg/dl (0.2-1.3); Total Protein,Serum 7.2 g/dl (6.3-8.2)
[2021-03-13 13:02] LABS: Free Thyroxine Index 3.2 ug/dL (5.93-13.13); T4 (Thyroxine) 8.9 ug/dl (5.53-11.0); Triiodothryronine (T3) Uptake 36 % (23.5-40.5)
[2021-03-13 13:15] LABS: Thyroid Stimulating Hormone 1.91 uIU/mL (0.465-4.68)
== END ==
PROVIDERS: PCP Emergency Medicine; Visit Provider Physician Assistant
DX: I10 Essential (primary) hypertension (principal); I25.10 Atherosclerotic heart disease of native coronary artery without angina pectoris; I48.0 Paroxysmal atrial fibrillation; Z79.899 Other long term (current) drug therapy
CPT/HCPCS: 36415; 71046; 80076; 84436; 84443; 84479

== ENCOUNTER 2021-03-30 12:55 | Day surgery (SDC) | payer MEDICARE, SELFPAY ==
[2021-03-30 13:01] VITALS: BMI 25.5
--- NOTE | 2021-03-30 13:11 | HMH.ANESCL ---
[facility] Anesthesia Checklist - Patient Identification Patient Identification: Arm Band - Structural Data Admitted From: Home Planned Operative Procedure/s: Cardioversion Consent for Planned Operative Procedure(s) Verified: Yes - NPO Status Verified Time NPO: 00:00 - Airway Assessment C-Spine Mobility Assessed: Yes TMJ Mobility Assessed: Yes Dentition: Dentures-poor fitting - Neurological Assessment Level of Consciousness: Awake Hx Seizures: No Numbness or tingling in extremities: No - Anesthesia Plan Anesthesia Risk discussed: Yes Anesthesia Plan: Verified ASA Class: III Anesthesia Type: MAC [facility] History I have reviewed the patient's past medical history: Yes Medical History: Reports:: Atrial Fibrillation, Coronary Artery Disease, Hypertension Denies:: Diabetes Mellitus Type 1, Diabetes Mellitus Type 2 *Have you ever received a pneumonia vaccine?: No *Have you received a flu vaccine this season?: No Anesthesia experience/problems:: None Other Surgeries: Yes: No Previous Surgery - *Social History Smoking Status: Never smoker Alcohol Intake: never Substance Use Type: denies use *Occupational Status:: retired *Travel in the last 8 weeks: None Family Hx:: Unable to obtain
[2021-03-30 13:35] VITALS: BP 186/123; PULSE 85; RESP 18; TEMP 36.9; O2SAT 96
[2021-03-30 13:43] VITALS: PULSE 67
[2021-03-30 14:15] VITALS: BP 133/71; PULSE 59; O2SAT 94
--- NOTE | 2021-03-30 15:28 | HMH.CARDIO ---
[facility] Cardioversion Date: 03/30/21 Provider:: ROSY Mckenna Procedure Performed:: Synchronized electrical cardioversion Diagnosis:: Atrial fibrillation Procedure Summary:: Patient was brought to the cardiac [facility] as an outpatient. After informed consent was obtained patient was given IV sedation per anesthesia. Once the patient was sedated a single 200 J shock was delivered which did initially convert the patient to sinus rhythm but within 5 minutes he did return to atrial fibrillation. Ultimately unsuccessful cardioversion. Patient tolerated the procedure without complications. Complications:: None Conculsion:: Unsuccessful attempt at maintaining sinus rhythm after cardioversion. Amiodarone/Cordarone will be discontinued. Metoprolol will be used for rate control. He will continue Eliquis therapy.
== END 2021-03-30 14:35 | disposition home or self-care (01) ==
LOC: CATHLAB 12:57
PROVIDERS: PCP Emergency Medicine; Visit Provider Internal Medicine Cardiovascular Disease
DX: I48.0 Paroxysmal atrial fibrillation (principal)
CPT/HCPCS: 92960

== ENCOUNTER → 2021-09-06 15:53 | Outpatient (CLI) | payer MEDICARE, SELFPAY ==
--- NOTE | 2021-09-06 16:10 | ECG_ITS ---
APPROVED REPORT Exam: Resting ECG HR:67 bpm ECG Measurements Heart Rate 67 AXES NM 182 P 32 QRSd 113 QRS -30 QT 419 T 12 QTc 434 Conclusion SINUS RHYTHM POSSIBLE LEFT ATRIAL ENLARGEMENT [-0.1mV P-WAVE IN V1/V2] BORDERLINE LEFT AXIS DEVIATION [QRS AXIS < -20] S1-S2-S3 PATTERN, CONSISTENT WITH PULMONARY DISEASE, RVH, OR NORMAL VARIANT INCOMPLETE RIGHT BUNDLE BRANCH BLOCK [90+ ms QRS DURATION, TERMINAL R IN V1/V2, 40+ ms S IN I/aVL/V4/V5/V6] POSSIBLE LEFT VENTRICULAR HYPERTROPHY [VOLTAGE CRITERIA PLUS LAE OR QRS WIDENING] ABNORMAL ECG UNCONFIRMED REPORT Electronically signed by : Solomon Lambert MD 09/06/2021 19:29:02
[2021-09-06 16:59] LABS: Microscopic, Urine URINE MICROSCOPIC (MICROSCOPIC)
[2021-09-06 17:13] LABS: Appearance,Urine CLEAR (Clear); Blood, Urine Negative (Negative); Color,Urine YELLOW (Yellow); Glucose,Urine (UA) Negative (Negative); Ketones,Urine Negative (Negative); Leukocyte Esterase,Urine Negative (Negative); Nitrate,Urine Negative (Negative); PH,Urine 5.5 (5.0-8.5); Protein,Urine Negative (Negative); Specific Gravity, Urine >= 1.030 (1.005-1.030)
[2021-09-06 17:14] LABS: Bilirubin,Urine Negative (Negative); Chloride 107 mmol/L (98-107); Potassium 4.6 mmoL/L (3.5-5.1); Sodium 137 mmol/L (136-145)
[2021-09-06 17:16] LABS: Blood Urea Nitrogen 45 mg/dl (9-20); Estimated Glomerular Filt Rate 33 ml/min (>60); GFR (African American) 40 ML/MIN (>60)
[2021-09-06 17:17] LABS: Alanine Aminotransferase 25 U/L (12-78); Albumin Level 4.3 g/dl (3.5-5.0); Albumin/Globulin Ratio 1.5 (1.1-1.8); Alkaline Phosphatase 61 U/L (38-126); Anion Gap 11.6 mEq/L (5-15); Aspartate Amino Transferase 44 U/L (17-59); Basophils # 0.1 K/mm3 (0-0.2); Basophils % 0.7 % (0.1-2.0); Bilirubin,Total 0.9 mg/dl (0.2-1.3); Calcium 9.1 mg/dl (8.4-10.2); Carbon Dioxide 23 mmol/L (22.0-30.0); Eosinophils # 0.1 K/mm3 (0.0-0.4); Globulin 2.9 g/dL (1.3-3.2); Glucose 80 mg/dl (74-100); Hematocrit 46.6 % (42.0-52.0); Hemoglobin 14.9 g/dL (14.1-18.0); Lymphocytes # 1.1 K/mm3 (0.7-4.5); Lymphocytes % 13.3 % (10-50); Mean Corpuscular Hemoglobin 28.2 pg (27.0-31.2); Mean Corpuscular Volume 88.2 fl (80-94); Mean Platelet Volume 10.7 fl (7.4-10.4); Monocytes # 0.5 K/mm3 (0.1-1.0); Neutrophils # 6.3 K/mm3 (1.8-7.8); Platelet Count 154 K/mm3 (142-424); Red Blood Count 5.28 M/mm3 (4.60-6.20); Total Protein,Serum 7.2 g/dl (6.3-8.2)
[2021-09-06 17:24] LABS: Amphetamine/Metha Screen,Urine Negative ng/ml (<1000)
[2021-09-06 17:25] LABS: Barbiturates Screen,Urine Negative ng/ml (<200)
[2021-09-06 17:26] LABS: Benzodiazepines Screen,Urine Positive ng/ml (<200); Cocaine Screen,Urine Negative ng/ml (<300)
[2021-09-06 17:27] LABS: Methadone Screen,Urine Negative ng/ml (<300)
[2021-09-06 17:28] LABS: Cannabinoid Screen,Urine Negative ng/ml (<50); Opiate Screen,Urine Negative ng/ml (<300)
[2021-09-06 17:29] LABS: Phencyclidine Screen,Urine Negative ng/ml (<25)
[2021-09-06 17:34] LABS: Troponin I < 0.01 ng/ml (0.00-0.034)
[2021-09-06 17:35] LABS: T4 (Thyroxine) 5.9 ug/dl (5.53-11.0)
[2021-09-06 17:42] LABS: Bacteria,Urine Trace /lpf; Squamous Epithelial Cell,Urine Occasional #/hpf (0-5); WBC,Urine Occasional #/hpf (0-3)
[2021-09-06 17:48] LABS: Thyroid Stimulating Hormone 1.99 uIU/mL (0.465-4.68)
== END ==
PROVIDERS: PCP Emergency Medicine; Visit Provider Nurse Practitioner
DX: Z20.822 Contact with and (suspected) exposure to COVID-19 (principal); F29 Unspecified psychosis not due to a substance or known physiological condition; Z79.899 Other long term (current) drug therapy
CPT/HCPCS: 36415; 80053; 80305; 81001; 84436; 84443; 84484; 85025; 93005; C9803; U0003; U0005

== ENCOUNTER 2021-11-15 14:07 | Emergency (ER) | payer MEDICARE, SELFPAY ==
[2021-11-15 13:59] VITALS: BP 125/66; PULSE 74; RESP 16; TEMP 36.9; O2SAT 97; BMI 22.6
--- NOTE | 2021-11-15 14:10 | CT_ITS ---
FINAL REPORT TECHNIQUE: Axial CT images were obtained through the facial bones/sinuses. Coronal reformats were obtained. This study was performed with techniques to keep radiation doses as low as reasonably achievable (ALARA). Individualized dose reduction techniques using automated exposure control or adjustment of mA and/or kV according to the patient's size were employed. CLINICAL HISTORY: trauma FINDINGS: There is no acute fracture. The orbits are intact. The globes are unremarkable. There is mild mucoperiosteal thickening in the right cell of the sphenoid sinus. There is no soft tissue abnormality. IMPRESSION: No acute process. Reviewed, Interpreted and Dictated by Anam Henson MD Transcribed by Robin Zamora Authenticated by Anam Henson MD on 11/15/2021 03:27:54 PM [facility]
--- NOTE | 2021-11-15 14:10 | CT_ITS ---
FINAL REPORT TECHNIQUE: Axial CT images were performed through the head. Coronal reformatted images were submitted. This study was performed with techniques to keep radiation doses as low as reasonably achievable (ALARA). Individualized dose reduction techniques using automated exposure control or adjustment of mA and/or kV according to the patient's size were employed. CLINICAL HISTORY: trauma FINDINGS: There is moderate atrophy. There is decreased attenuation in the deep white matter probably due to chronic microvascular ischemia. The ventricles are normal in size. There is no evidence of hemorrhage. There is no mass or edema identified. There is no abnormal extra-axial fluid seen. The sinuses are well aerated. There is no acute osseous abnormality. IMPRESSION: Atrophy and chronic microvascular ischemia. No acute intracranial process. Reviewed, Interpreted and Dictated by Anam Henson MD Transcribed by Robin Zamora Authenticated by Anam Henson MD on 11/15/2021 03:27:53 PM [facility]
--- NOTE | 2021-11-15 14:30 | PC.NURSE ---
patient to CT by stretcher with metallurgical lab technician
--- NOTE | 2021-11-15 14:47 | PC.NURSE ---
patient back from CT by stretcher with agricultural service technician and Nurse
--- NOTE | 2021-11-15 14:52 | HMH.EDFALL ---
ED Disposition Clinical Impression: Closed head injury Qualifiers: Encounter type: initial encounter Qualified Code(s): S09.90XA - Unspecified injury of head, initial encounter Disposition: Home, Self-Care Condition on Discharge: Good Instructions: How to Prevent Falls Referrals: Augustine Baptiste MD [Primary Care Provider] - - Critical Care Critical Care Time: No Attestation: On 11/15/21, the high probability of a clinically significant, sudden or life threatening deterioration of the following system(s) required my full and direct attention, intervention and personal management. The time I documented below is in addition to time spent performing reported procedures but includes the following listed in this critical care notation. Medical Decision Making - Medical Records Medical records reviewed: Yes: I reviewed the patient's medical records. - [place] Inquiry Pt receiving controlled substance: No Vital Signs: 11/15/21 13:59 Temperature 98.5 F Temperature Source Oral Pulse Rate [Right Radial] 74 Respiratory Rate 16 Blood Pressure [Right Arm] 125/66 Blood Pressure Mean [Right Arm] 85 Blood Pressure Source [Right Arm] Automatic Cuff Blood Pressure Position [Right Arm] Sitting 02 Sat by Pulse Oximetry 97 Oxygen Delivery Method Room Air - CT Data CT Scan: Head, Other (face) Time Received: 15:[address] Reviewed: Yes: I have reviewed the patient's CT results, I have viewed the radiologist's interpretation Findings Narrative: IMPRESSION: Atrophy and chronic microvascular ischemia. No acute intracranial process. IMPRESSION: No acute process. - Reevaluation(s) Time: 15:31 Reevaluation #1: On reevaluation, patient appears to be at baseline. CTs are unremarkable. Patient to follow-up with PCP. Strict return precautions. Verbalized understanding. Medical Decision Narrative: 76-year-old male presenting after potential fall. Patient appears to be at his baseline. Imaging obtained. Fall HPI - General Chief Complaint: Fall Stated Complaint: Weakness; Fall Time Seen by Provider: 11/15/21 14:07 Mode of Arrival: EMS Limitations: No Limitations Description of Symptoms (Recalled from ER Triage Doc. by RN): Pt sent to ER for evaluation r/t fall on 11/13/21. Pt has bruising noted to R eye area r/t recent fall. [facility] staff states pt is high fall risk, states pt bed is on the floor r/t fall risk. Pt is alert, but not oriented, will look at you when you say his name but does not verbally respond or follow commands. [facility] staff states this has been pts mentation since recent medication changes for psych and alzheimers. - History of Present Illness HPI Narrative: Is a 76-year-old male presented to the emergency department for evaluation. Patient is longstanding history of dementia and nonverbal. Done responding to commands. He has a longstanding history of falling multiple times. They actually keep his bed on the floor the senior care secondary to frequent falls. Patient was seen today after a potential fall. He had some bruising over the right side of the face. Patient appears to be at his baseline. He is unable to provide any other history. - Related Data Home Medications Medication Instructions Recorded Confirmed Apixaban [Eliquis] 5 mg PO BID 06/02/20 03/13/21 Fenofibrate Nanocrystallized 48 mg PO DAILY 06/02/20 03/13/21 [Fenofibrate] lisinopriL [Lisinopril 40mg Tablet] 40 mg PO DAILY 06/02/20 03/13/21 Amiodarone HCl [Cordarone 200mg 200 mg PO DAILY 06/03/20 03/13/21 tablet] bupropion HCl 75 mg tablet 300 mg PO DAILY tab 09/12/20 03/13/21 mirtazapine 15 mg tablet 45 mg PO HS tab 09/12/20 03/13/21 donepezil 5 mg tablet 15 mg PO HS tab 03/13/21 03/13/21 sertraline 100 mg tablet 200 mg PO DAILY tab 03/13/21 03/13/21 Previous Rx's Medication Instructions Recorded Aspirin [Aspirin 81mg EC Tab] 81 mg PO DAILY #90 tablet. 06/05/20 Metoprolol Succinate [To
--- NOTE | 2021-11-15 17:56 | PC.NURSE ---
report called to brigida at [facility] at this time
[2021-11-15 18:00] VITALS: BP 130/70; PULSE 88; RESP 16; TEMP 36.9; O2SAT 97
== END 2021-11-15 18:05 | disposition home or self-care (01) ==
PROVIDERS: Emergency Provider Emergency Medicine; PCP Emergency Medicine
DX: S09.90XA Unspecified injury of head, initial encounter (principal); I10 Essential (primary) hypertension; I48.91 Unspecified atrial fibrillation; I25.10 Atherosclerotic heart disease of native coronary artery without angina pectoris; Z79.01 Long term (current) use of anticoagulants; F03.90 Unspecified dementia, unspecified severity, without behavioral disturbance, psychotic disturbance, mood disturbance, and anxiety; Z79.899 Other long term (current) drug therapy
CPT/HCPCS: 70450; 70486

== ENCOUNTER 2021-11-17 13:32 | Inpatient (IN) | payer MEDICARE, MEDICAID, SELFPAY ==
[2021-11-17] VITALS (37 sets, daily range): BP systolic 53–134; BP diastolic 38–103; PULSE 97–194; RESP 16–19; TEMP 36.6; O2SAT 79–100; BMI 21.7; BMI 19.2
--- NOTE | 2021-11-17 13:37 | ECG_ITS ---
APPROVED REPORT Exam: Resting ECG HR:147 bpm ECG Measurements Heart Rate 147 AXES QRSd 94 QRS -47 QT 294 T 28 QTc 378 Conclusion ATRIAL FIBRILLATION WITH RAPID VENTRICULAR RESPONSE INCOMPLETE RIGHT BUNDLE BRANCH BLOCK [90+ ms QRS DURATION, TERMINAL R IN V1/V2, 40+ ms S IN I/aVL/V4/V5/V6] LEFT ANTERIOR FASCICULAR BLOCK [QRS AXIS <= -45, QR IN I, RS IN II] ABNORMAL ECG UNCONFIRMED REPORT Electronically signed by : Solomon Lambert MD 11/21/2021 10:15:39
--- NOTE | 2021-11-17 13:37 | PC.NURSE ---
patient arrived via stretcher by EMS, staff is bedside (respiratory therapist and nurses/techs). Patient hooked up to vital signs and cardiac monitoring. EKG was done upon arrival by Tech. Kenan
--- NOTE | 2021-11-17 13:42 | HMH.EDGENADL ---
ED Disposition Clinical Impression: Hypernatremia, Dehydration, Hypovolemic shock, Rapid atrial fibrillation Respiratory failure with hypoxia Qualifiers: Chronicity: acute Qualified Code(s): J96.01 - Acute respiratory failure with hypoxia Disposition: Admitted As Inpatient Condition on Discharge: Serious - Critical Care Critical Care Time: Yes Attestation: On , the high probability of a clinically significant, sudden or life threatening deterioration of the following system(s) required my full and direct attention, intervention and personal management. The time I documented below is in addition to time spent performing reported procedures but includes the following listed in this critical care notation. Total Critical Care Time: 50 Vital system(s) involved:: Circulatory Failure, Respiratory Failure My critical care processes included: Assessment & monitoring of V/S, Initial and Re-exams, Data Review/Interpretation, Coordinating Care, Medication Orders and management, Documentation Medical Decision Making - Medical Records Medical records reviewed: Yes: I reviewed the patient's medical records. MR Galloway: Seen in this emergency department 2 days ago for a fall with facial injury. Reviewed emergency department note. Per emergency physician note the patient has a longstanding history of dementia and is nonverbal. Reviewed CT reports of face and head, negative. Reviewed most recent cardiology notes. Has paroxysmal atrial fibrillation. Attempted cardioversion 03/30/2021, unsuccessful. See note below. Amiodarone discontinued at that time. He is on Eliquis for anticoagulation. Metoprolol for rate control. Reviewed most recent heart cath and echocardiogram results, see below. - [place] Inquiry Pt receiving controlled substance: No Vital Signs: 11/17/21 13:37 11/17/21 14:01 11/17/21 14:04 Temperature 97.9 F Temperature Source Rectal Pulse Rate 156 H 162 H Pulse Rate [Left Radial] 156 H Respiratory Rate 16 Blood Pressure 112/88 97/49 L Blood Pressure [Right Arm] 81/46 L Blood Pressure Mean [Right Arm] 57 02 Sat by Pulse Oximetry 79 L 89 L 100 Oxygen Delivery Method Non-Rebreather Non-Rebreather Non-Rebreather Oxygen Flow Rate (LPM) 15 15 15 11/17/21 14:30 11/17/21 15:01 11/17/21 15:31 Temperature Temperature Source Pulse Rate 165 H 147 H Pulse Rate [Left Radial] Respiratory Rate 19 Blood Pressure 112/69 78/48 L 53/38 L Blood Pressure [Right Arm] Blood Pressure Mean [Right Arm] 02 Sat by Pulse Oximetry 88 L 100 94 L Oxygen Delivery Method Non-Rebreather Non-Rebreather Non-Rebreather Oxygen Flow Rate (LPM) 15 15 15 11/17/21 15:57 11/17/21 16:00 11/17/21 16:35 Temperature Temperature Source Pulse Rate 161 H Pulse Rate [Left Radial] Respiratory Rate Blood Pressure 97/46 L 107/58 L Blood Pressure [Right Arm] Blood Pressure Mean [Right Arm] 02 Sat by Pulse Oximetry 99 99 100 Oxygen Delivery Method Non-Rebreather Non-Rebreather Non-Rebreather Oxygen Flow Rate (LPM) 15 15 10 - Lab Data Lab Results 11/17/21 13:47: Specimen Source Right radial, O2 % 100%, ABG pH 7.33 L, ABG pCO2 36.0, ABG pO2 26.2 L, ABG HCO3 18.4 L, ABG Total CO2 19.5 L, ABG O2 Saturation 34 L*, ABG Base Excess -7.6 L, Blayne Test Acceptable 11/17/21 13:55: Urine Color Yellow, Urine Appearance Clear, Urine pH 5.5, Ur Specific [place] >= 1.030, Urine Protein Negative, Urine Glucose (UA) Negative, Urine Ketones Trace, Urine Blood 1+, Urine Nitrate Negative, Urine Bilirubin 1+ A, Urine Urobilinogen 1.0, Ur Leukocyte Esterase Negative, Urine RBC 3-5, Urine WBC 5-10, Ur Squamous Epith Cells 5-10, Urine Bacteria 2+, Hyaline Casts 5-10, Urine Mucus 1+ 11/17/21 13:55: WBC 13.8 H, RBC 5.29, Hgb 14.7, Hct 47.1, MCV 89.0, MCH 27.8, MCHC 31.3 L, RDW 15.1, Plt Count 200, MPV 10.6 H, Neut % (Auto) 83.3 H, Lymph % (Auto) 9.3 L, Isabella % (Auto) 6.3, Eos % (Auto) 0.3, Baso % (Auto) 0.8, Neut # (Auto) 11.5 H, Ly
--- NOTE | 2021-11-17 13:44 | PC.NURSE ---
ED MD at
--- NOTE | 2021-11-17 13:50 | PC.NURSE ---
Pads added to bedrails r/t pt thrashing around in bed.
[2021-11-17 13:54] LABS: Allen's Test Acceptable; Oxygen 100% %; Source Right Radial
[2021-11-17 13:56] LABS: ABG HCO3 18.4 mmhg (22.0-26.0); ABG PH 7.33 mmol/L (7.35-7.45); ABG PO2 26.2 mmhg (80-100); ABG TCO2 19.5 mmhg (23-27)
[2021-11-17 13:57] LABS: ABG Base Excess -7.6 mmol/L (-2.4-2.3); ABG Oxygen Saturation 34 % (90-100)
--- NOTE | 2021-11-17 14:14 | XR_ITS ---
PROCEDURE INFORMATION: Exam: XR Chest Exam date and time: 11/17/2021 2:20 PM Age: 76 years old Clinical indication: Shortness of breath; Additional info: SOA TECHNIQUE: Imaging protocol: XR of the chest. Views: 1 view. COMPARISON: CR XR CHEST 2V 03/13/2021 11:36 AM FINDINGS: Lungs: No consolidation. Pleural spaces: Lucency overlies the left hemithorax and may be overlying skin folds, however pneumothorax cannot be excluded. There are no pleural effusions present. Heart/Mediastinum: No cardiomegaly. Bones/joints: The thoracic spine demonstrates mild degenerative changes at multiple levels. IMPRESSION: Lucency overlies the left hemithorax and may be overlying skin folds, however pneumothorax cannot be excluded. Follow-up examination with better positioning is recommended.
--- NOTE | 2021-11-17 14:22 | PC.NURSE ---
radiology is bedside
[2021-11-17 14:25] LABS: Microscopic, Urine URINE MICROSCOPIC (MICROSCOPIC)
[2021-11-17 14:27] LABS: Basophils # 0.1 K/mm3 (0-0.2); Basophils % 0.8 % (0.1-2.0); Eosinophils % 0.3 % (0.1-12.0); Hematocrit 47.1 % (42.0-52.0); Hemoglobin 14.7 g/dL (14.1-18.0); Lymphocytes # 1.3 K/mm3 (0.7-4.5); Lymphocytes % 9.3 % (10-50); Mean Corpuscular HGB Conc 31.3 g/dL (31.8-35.4); Mean Corpuscular Hemoglobin 27.8 pg (27.0-31.2); Mean Platelet Volume 10.6 fl (7.4-10.4); Monocytes # 0.9 K/mm3 (0.1-1.0); Monocytes % 6.3 % (1.7-9.3); Neutrophils # 11.5 K/mm3 (1.8-7.8); Neutrophils % 83.3 % (37.0-80.0); Platelet Count 200 K/mm3 (142-424); Red Blood Count 5.29 M/mm3 (4.60-6.20); Red Cell Distribution Width 15.1 % (11.5-17.5); White Blood Count 13.8 K/mm3 (4.8-10.8)
[2021-11-17 14:27] LABS: Coronavirus 19, PCR Not Detected (NotDetected); Influenza A, PCR Not Detected (NotDetected); Influenza B, PCR Not Detected (NotDetected)
[2021-11-17 14:30] LABS: Appearance,Urine CLEAR (Clear); Blood, Urine 1+ (Negative); Color,Urine YELLOW (Yellow); Glucose,Urine (UA) Negative (Negative); Ketones,Urine TRACE (Negative); Leukocyte Esterase,Urine Negative (Negative); Nitrate,Urine Negative (Negative); PH,Urine 5.5 (5.0-8.5); Potassium 5.1 mmoL/L (3.5-5.1); Protein,Urine Negative (Negative); Specific Gravity, Urine >= 1.030 (1.005-1.030)
[2021-11-17 14:32] LABS: Alanine Aminotransferase 26 U/L (12-78); Alkaline Phosphatase 83 U/L (38-126); Anion Gap 16.1 mEq/L (5-15); Aspartate Amino Transferase 39 U/L (17-59); Bilirubin,Total 0.8 mg/dl (0.2-1.3); Calcium 8.2 mg/dl (8.4-10.2); Carbon Dioxide 20 mmol/L (22.0-30.0); Creatinine Clearance Estimated 16 mL/min (50-200); Estimated Glomerular Filt Rate 14 ml/min (>60); GFR (African American) 17 ML/MIN (>60); Glucose 118 mg/dl (74-100); Lactic Acid 1.8 mmol/L (0.7-2.1)
[2021-11-17 14:33] LABS: Albumin Level 3.1 g/dl (3.5-5.0); Ammonia < 9 umol/L (9-30); Globulin 3.1 g/dL (1.3-3.2); Total Protein,Serum 6.2 g/dl (6.3-8.2)
[2021-11-17 14:41] LABS: Blood Urea Nitrogen 139 mg/dl (9-20); Chloride 133 mmol/L (98-107); Sodium 164 mmol/L (136-145)
--- NOTE | 2021-11-17 14:42 | PC.NURSE ---
critical results called from the lab reported to
[2021-11-17 14:43] LABS: Bilirubin,Urine 1+ (Negative)
[2021-11-17 14:45] LABS: Troponin I 0.02 ng/ml (0.00-0.034)
[2021-11-17 14:46] LABS: Bacteria,Urine 2+ /lpf; Mucus,Urine 1+ /lpf
[2021-11-17 15:04] LABS: Valproic Acid, (Depakene) 24.8 ug/ml (50-100)
--- NOTE | 2021-11-17 15:12 | PC.NURSE ---
Spoke with Dr Curtis with [facility]. He advised that he noted a line on pt CXR at the left hemithorax. Advised that he was unclear if it were a skin fold or a pneumothorax. Dr Curtis requested a repeat CXR to try to exclude a pneumothorax. AGUSTIN GENAO and rad notified.
--- NOTE | 2021-11-17 15:14 | XR_ITS ---
PROCEDURE INFORMATION: Exam: XR Chest Exam date and time: 11/17/2021 3:18 PM Age: 76 years old Clinical indication: Other: Low 02 sat; Additional info: Low o2 sat TECHNIQUE: Imaging protocol: XR of the chest. Views: 1 view. COMPARISON: CR XR CHEST PORTABLE 11/17/2021 2:20 PM FINDINGS: Lungs: No focal pneumonia or pneumothorax. Pleural spaces: There are no pleural effusions present. Heart/Mediastinum: Unremarkable. No cardiomegaly. Bones/joints: The thoracic spine demonstrates mild degenerative changes at multiple levels. IMPRESSION: No focal pneumonia or pneumothorax.
--- NOTE | 2021-11-17 15:18 | PC.NURSE ---
Radiology at for a repeat chest xray
[2021-11-17 15:45] LABS: Creatine Kinase 139 U/L (55-170)
--- NOTE | 2021-11-17 16:05 | PC.NURSE ---
Called inserting machine operator about getting Dr. Lambert paged.
--- NOTE | 2021-11-17 16:09 | PC.NURSE ---
Dr. Lambert returned call to ER and speaking with Dr. Babcock at this time.
--- NOTE | 2021-11-17 16:17 | PC.NURSE ---
called house at this time about admission. will get a bed.
--- NOTE | 2021-11-17 16:45 | PC.NURSE ---
Assisted BREANNE Damian in changing the patient and getting his brief changed and him repositioned. Warm blanket was given to the patient as well. Lights turned down in room to keep patient calm.
--- NOTE | 2021-11-17 17:27 | PC.NURSE ---
placed call to swinging cut off saw operator for Dr. France to be paged.
--- NOTE | 2021-11-17 17:28 | PC.NURSE ---
Dr. France returned call to the ED at this time and speaking with Dr. Babcock
--- NOTE | 2021-11-17 17:28 | PC.NURSE ---
BREANNE Hughes and BREANNE Damian at BS
[2021-11-17 17:39] LABS: Troponin I 0.01 ng/ml (0.00-0.034)
--- NOTE | 2021-11-17 18:54 | PC.NURSE ---
PHENYLEPHINE 110MCG INCREASED
--- NOTE | 2021-11-17 19:54 | PC.NURSE ---
patient up to floor via stretcher @ this time.
[2021-11-18] VITALS (16 sets, daily range): BP systolic 91–131; BP diastolic 38–90; PULSE 90–138; RESP 16–28; TEMP 36.3–37.2; O2SAT 91–100
--- NOTE | 2021-11-18 04:27 | PC.NURSE ---
Pt is awake in bed. He is nonverbal but will moan at intervals. He is guarded and uncooperative with care. Has been restless t/o night. He remains on Diltiazem gtt maxed. Current HR ranging 110s -120s. Rishi gtt has been titrated down since arriving to floor. It is currently infusing @ 50 mcg/min. Pt is on RA. Pt has multiple bruising to face and extremities. Teds placed for VTE. Pt bathed. Will continue to monitor.
--- NOTE | 2021-11-18 08:37 | HMH.HP ---
*Admission Date: 11/17/21 *Chief complaint: altered mental status *History of present illness: this patient was sent from [facility] - Brought in from intermediate. Reported to have been found with Howie[place]ayton respirations with periods of apnea, rapid atrial fibrillation, low blood pressure and low pulse oximetry. Blood pressure reported to be 70s on EMS arrival. O2 sats 79% on EMS arrival. Fluid bolus started in transport and nonrebreather mask applied. Patient unable to provide any further history himself, nonverbal at this time. Nursing staff reports that intermediate reported that he had recently been admitted to a psychiatric facility and came to the intermediate on 11/09/2021. Since arriving there has been zonked , nonverbal. pt seen in this emergency department 2 days ago for a fall with facial injury. Reviewed emergency department note. Per emergency physician note the patient has a longstanding history of dementia and is nonverbal. Reviewed CT reports of face and head, negative. Reviewed most recent cardiology notes. Has paroxysmal atrial fibrillation. Attempted cardioversion 03/30/2021, unsuccessful. See note below. Amiodarone discontinued at that time. He is on Eliquis for anticoagulation. Metoprolol for rate control. Reviewed most recent heart cath and echocardiogram results, see below. pt with af ib wit rvr and had abn eletrolytes and required ivf and meds and will be admitted [facility] History I have reviewed the patient's past medical history: Yes Medical History: Reports:: Atrial Fibrillation, Coronary Artery Disease, Hyperlipidemia, Hypertension Denies:: Diabetes Mellitus Type 1, Diabetes Mellitus Type 2, Seizures *Have you ever received a pneumonia vaccine?: Yes *Have you received a flu vaccine this season?: No Other Surgeries: Yes: No Previous SurgeryComment Only: Other (unknown) - *Social History Smoking Status: Never smoker Alcohol Intake: never Substance Use Type: denies use *Occupational Status:: disabled Housing: assisted living facility Household Members: caregiver *Travel in the last 8 weeks: None Family Hx:: Unable to obtain Review of Systems - Review of Systems Review of systems:: unable to obtain Meds Home Medications Medication Instructions Recorded Confirmed Type Apixaban [Eliquis] 5 mg PO BIDWMEAL 06/02/20 11/18/21 History Fenofibrate Nanocrystallized 48 mg PO DAILY 06/02/20 11/17/21 History [Fenofibrate] donepezil 5 mg tablet 10 mg PO DAILY tab 03/13/21 11/17/21 History sertraline 100 mg tablet 25 mg PO DAILY tab 03/13/21 11/17/21 History LORazepam [Ativan 0.5mg 0.5 mg PO Q8HP PRN 11/17/21 11/18/21 History tablet] Megestrol Acetate 400 mg PO DAILY 11/17/21 11/17/21 History Quetiapine Fumarate [Seroquel] 300 mg PO HS 11/17/21 11/17/21 History Acetaminophen 500 mg PO Q6HP PRN 11/18/21 11/18/21 History Aspirin [Aspirin 81mg chewable 81 mg PO DAILY 11/18/21 11/18/21 History tab] Divalproex Sodium [Depakote 750 mg PO BID 11/18/21 11/18/21 History Sprinkle 125mg capsule] Magnesium Hydroxide [Milk of 30 ml PO DAILYP PRN 11/18/21 11/18/21 History Magnesia] Metoprolol Tartrate [Lopressor 100 100 mg PO DAILY 11/18/21 11/18/21 History mg Tablets] lisinopriL [Lisinopril] 20 mg PO DAILY 11/18/21 11/18/21 History Allergies Allergy/AdvReac Type Severity Reaction Status Date / Time No Known Allergies Allergy Verified 11/17/21 15:30 Exam Vital signs and Labs for Last 24 Hours: Temp Pulse Resp BP Pulse Ox 97.3 F L 105 H 20 91/61 L 97 11/18/21 04:00 11/18/21 08:00 11/18/21 08:00 11/18/21 08:00 11/18/21 08:00 Laboratory Results - last 24 hr 11/17/21 13:47: Specimen Source Right radial, O2 % 100%, ABG pH 7.33 L, ABG pCO2 36.0, ABG pO2 26.2 L, ABG HCO3 18.4 L, ABG Total CO2 19.5 L, ABG O2 Saturation 34 L*, ABG Base Excess -7.6 L, Blayne Test Acceptable 11/17/21 13:55: Urine Color Yellow, Urine Appearance Clear, Urine pH 5.5, Ur Specific [place] >= 1.
[2021-11-18 09:03] LABS: Potassium 4.8 mmoL/L (3.5-5.1)
[2021-11-18 09:05] LABS: Creatinine Clearance Estimated 24 mL/min (50-200); Estimated Glomerular Filt Rate 27 ml/min (>60); GFR (African American) 32 ML/MIN (>60)
[2021-11-18 09:06] LABS: Anion Gap 14.8 mEq/L (5-15); Calcium 7.8 mg/dl (8.4-10.2); Carbon Dioxide 15 mmol/L (22.0-30.0); Glucose 87 mg/dl (74-100)
[2021-11-18 09:16] LABS: Blood Urea Nitrogen 100 mg/dl (9-20); Chloride 145 mmol/L (98-107); Sodium 170 mmol/L (136-145)
--- NOTE | 2021-11-18 10:40 | HMH.PHAINT ---
MEDICATION RECONCILIATION COMPLETE USING MAR FROM [facility].
--- NOTE | 2021-11-18 10:41 | HMH.PHAVTE ---
[facility] Pharmacy VTE Monitoring - Patient Demographics Admission date: 11/17/21 Report Date: 11/18/21 Time: 10:41 Allergies/Adverse Reactions: Patient Allergies No Known Allergies Allergy (Verified 11/17/21 15:30) Height: 1.83 m Weight: 64.319 kg Patient Problems: Current Active Problems Closed head injury (Acute) Hypernatremia (Acute) Dehydration (Acute) Hypovolemic shock (Acute) Rapid atrial fibrillation (Acute) Respiratory failure with hypoxia (Acute) Acute renal failure (ARF) (Acute) - VTE Risk Labs: VTE Related Lab Results Hgb 14.7 g/dL (14.1-18.0) 11/17/21 13:55 Hct 47.1 % (42.0-52.0) 11/17/21 13:55 Plt Count 200 K/mm3 (142-424) 11/17/21 13:55 BUN 100 mg/dl (9-20) H D 11/18/21 07:22 Creatinine 2.40 mg/dl (0.66-1.25) H D 11/18/21 07:22 Estimated Creat Clear 24 mL/min (50-200) 11/18/21 07:22 Was VTE Risk Assessment Performed: Yes VTE Risk Level: Moderate Risk Clinical Trial Participant: No - Prophylaxis VTE Prophylaxis Ordered?: Yes Types of VTE Prophylaxis: TEDS Knee High Location of Applied Device: Bilateral Lower Extremeties
--- NOTE | 2021-11-18 13:31 | XR_ITS ---
PROCEDURE INFORMATION: Exam: XR Chest Exam date and time: 11/18/2021 1:43 PM Age: 76 years old Clinical indication: Shortness of breath; Additional info: Increased oxygen need, possible aspiration TECHNIQUE: Imaging protocol: XR of the chest. Views: 1 view. COMPARISON: CR XR CHEST PORTABLE 11/17/2021 3:18 PM FINDINGS: Tortuous and possibly ectatic mid ascending thoracic aorta. This appears similar as compared to the reference exam. Normal heart size. Remainder of the upper mediastinum appears stable. There is stable rightward displacement of the trachea. Bilateral perihilar patchy and streak like opacities with segmental bronchial wall thickening. No large pleural effusions or pneumothorax. Remainder of the lungs are clear. No acute skeletal abnormality or aggressive osseous lesion. IMPRESSION: Findings as can be seen with an acute viral illness/bronchitis or reactive airways no definitive evidence for lobar pneumonia. 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
[2021-11-18 14:31] LABS: Adenovirus,PCR Not Detected (NotDetected); Coronavirus 229E Not Detected (NotDetected); Coronavirus NL63 Not Detected (NotDetected); Coronavirus OC43 Not Detected (NotDetected); Coronovirus HKU1,PCR Not Detected (NotDetected); Human Metapneumovirus Not Detected (NotDetected); Influenza A, PCR Not Detected (NotDetected); Influenza AH1, 2009 Not Detected (NotDetected); Influenza AH1, PCR Not Detected (NotDetected); Rhinovirus/Enterovirus Not Detected (NotDetected)
[2021-11-18 14:32] LABS: Bordetella Pertussis Not Detected (NotDetected); Chlamydophila Pneumoniae, PCR Not Detected (NotDetected); Influenza AH3,PCR Not Detected (NotDetected); Influenza B, PCR Not Detected (NotDetected); Mycoplasma Pneumoniae, PCR Not Detected (NotDetected); Parainfluenza 1, PCR Not Detected (NotDetected); Parainfluenza 2, PCR Not Detected (NotDetected); Parainfluenza 3, PCR Not Detected (NotDetected); Parainfluenza 4, PCR Not Detected (NotDetected); Respiratory Syncytial Virus Not Detected (NotDetected)
--- NOTE | 2021-11-18 14:32 | PC.NURSE ---
Addendum entered by Daija Frias RN 11/18/21 18:37: PT DIURESED ANOTHER 525 ML'S OF CLEAR YELLOW URINE. O2 SATURATION 92-95% ON 3 L NC. Addendum entered by Daija Frias RN 11/18/21 17:23: O2 SATURATION IS MAINTAINING 92-94% ON 4 L NC AT THIS TIME. Addendum entered by Daija Frias RN 11/18/21 17:05: PT HAS DIURESED 1575 ML'S OF CLEAR YELLOW URINE AFTER IV LASIX. Original Note: PT IS LYING AWAKE IN BED. NONVERBAL. VERY GUARDED/RESTLESS/UNCOOPERATIVE WITH CARE. PT WAS ON ROOM AIR UNTIL 1300. O2 SATURATION DESATTED TO THE 80'S. 50% VENTI MASK APPLIED. PT IS NOW MAINTAINING 90-93%. LUNG SOUNDS HAVE RHONCHI T/O THE UPPER LUNG WARNER. NOTIFIED PHYSICIAN CUSTOMS COMPLIANCE DIRECTOR. ORDERS RECEIVED (CXR, LASIX 80 MG IV ONE TIME, UPPER RESPIRATORY PCR AND LEVAQUIN 500 MG IV DAILY.) PT WAS DEEP SUCTIONED. SPUTUM COLLECTED. PHENYLEPHRINE DRIP @ 60MCG/MIN CR=717/44. CARDIZEM DRIP @ 15MG/HR IN AFIB HEART RATE 105-115. WILL CONTINUE TO MONITOR.
[2021-11-19] VITALS (17 sets, daily range): BP systolic 82–154; BP diastolic 44–78; PULSE 96–166; RESP 16–61; TEMP 36.4–37.2; O2SAT 83–96; BMI 19.1
--- NOTE | 2021-11-19 05:38 | PC.NURSE ---
Pt remains on Rishi gtt @ 50 mcg/min. Diltiazem is infusing @ 15 ml/hr. HR 110s to 130s. Pt has remained restless this shift. He moans at times. Has been awake most of night. Pt is resistive to care and is guarded. Bruising noted to (R) eye with some discharge. Bruising also noted to extremities. F/C draining to bedside. VSS. Will continue to monitor.
--- NOTE | 2021-11-19 07:10 | PC.NURSE ---
HR 160-170 on tele. Dilt gtt @ 20mg/hr. Called Dr. Baptiste. He ordered Metoprolol 5mg IV x 1 dose. Order faxed to [facility].
--- NOTE | 2021-11-19 08:00 | CA_ITS ---
APPROVED REPORT EXAM: Comprehensive 2D, Doppler, and color-flow Echocardiogram [employer]: Olga Jenkins, RT(R) Ht: 5 ft 9 in Wt: 140lbs BSA: 1.78 BP: 91/61 mmHg Indications: AFIB, CHF, CAD, HTN, DM, hyperlipidemia, dehydration, dementia/non verbal and combative. Very limited scanning due to patient grabbing my hand excessively and pushing it off his chest. Multiple attempts made to obtain images in this fashion. M-Mode Dimensions RVDd 2.47 cm (0.9-2.6) LA Diam 4.08 cm (1.9-4.0) LVDd 3.34 cm (3.5-5.7) Ao Diam 3.09 cm (2.0-3.7) LVDs 2.77 cm (3.5-5.7) IVSd 0.91 cm (0.6-1.1) PWd 0.99 cm (0.6-1.1) EF (Teich) 36.60% FS 17.10% EDV (Teich) 45.40 mL ESV (Teich) 28.80 mL Left Ventricle Technically very difficult and poor study because of the patient factors and poor acoustic windows. Left atrium is mildly enlarged, left ventricle is normal size, probably preserved left ventricular systolic function, estimated ejection fraction 55%, no regional wall motion abnormality in the obtained views. Diastolic parameters are inconclusive. Right Ventricle Right atrium and right ventricle are mildly enlarged with normal contractility. Aortic Valve Aortic valve is thickened and calcified there is mild aortic insufficiency. Mitral Valve Mitral valve is grossly normal, there is mild mitral regurgitation. Tricuspid Valve Tricuspid valve is grossly normal, there is mild tricuspid regurgitation, tricuspid regurgitation jet was inadequate for calculation of the right ventricular systolic pressure. Pulmonic Valve Pulmonic valve is poorly visualized. Great Vessels Aortic root is normal size. Inferior vena cava is poorly visualized. Pericardium No significant pericardial effusion noted. Conclusion 1. Technically very difficult and poor study because of the patient factors and poor acoustic windows. 2. Mild biatrial enlargement, normal left ventricular size, probably preserved left ventricular systolic function, estimated ejection fraction 55% and obtain views with no obvious regional wall motion abnormality. 3. Mildly enlarged right ventricle with normal contractility. 4. Mild mitral and tricuspid regurgitation. 5. Thickened and calcified aortic valve with mild aortic insufficiency. 6. No significant pericardial effusion. 7. Inferior vena cava is poorly visualized. Electronically signed by : Isidro Smiley MD 11/19/2021 21:02:01
--- NOTE | 2021-11-19 08:06 | XR_ITS ---
FINAL REPORT CLINICAL HISTORY: hypoxia COMPARISON: November 18, 2021 FINDINGS: The heart size is normal. The mediastinum is within normal limits. There is worsening right base opacity consistent with worsening pneumonia or atelectasis. There is no pleural effusion. There is no pneumothorax. The bony thorax is intact. IMPRESSION: Worsening right base pneumonia or atelectasis. Reviewed, Interpreted and Dictated by Daren Alfonso III, MD Transcribed by Robin Zamora Authenticated by Daren Alfonso III, MD on 11/19/2021 09:55:23 AM [facility]
[2021-11-19 09:07] LABS: Potassium 4.9 mmoL/L (3.5-5.1)
[2021-11-19 09:09] LABS: Alanine Aminotransferase 25 U/L (12-78); Albumin Level 2.2 g/dl (3.5-5.0); Alkaline Phosphatase 75 U/L (38-126); Anion Gap 10.9 mEq/L (5-15); Aspartate Amino Transferase 37 U/L (17-59); Bilirubin,Total 0.8 mg/dl (0.2-1.3); Blood Urea Nitrogen 58 mg/dl (9-20); Carbon Dioxide 20 mmol/L (22.0-30.0); Creatinine Clearance Estimated 39 mL/min (50-200); Estimated Glomerular Filt Rate 46 ml/min (>60); GFR (African American) 55 ML/MIN (>60); Globulin 2.2 g/dL (1.3-3.2); Total Protein,Serum 4.4 g/dl (6.3-8.2)
[2021-11-19 09:10] LABS: Calcium 7.1 mg/dl (8.4-10.2); Glucose 99 mg/dl (74-100)
--- NOTE | 2021-11-19 09:15 | PC.NURSE ---
received call from lab reporting Na 160 and Cl 134. Name and verified. Dr. Baptiste notified.
[2021-11-19 09:17] LABS: Chloride 134 mmol/L (98-107); Sodium 160 mmol/L (136-145)
[2021-11-19 09:18] LABS: Basophils # 0.1 K/mm3 (0-0.2); Basophils % 0.5 % (0.1-2.0); Eosinophils # 0.1 K/mm3 (0.0-0.4); Eosinophils % 0.9 % (0.1-12.0); Hematocrit 40.3 % (42.0-52.0); Hemoglobin 12.4 g/dL (14.1-18.0); Lymphocytes # 0.4 K/mm3 (0.7-4.5); Lymphocytes % 2.9 % (10-50); Mean Corpuscular HGB Conc 30.7 g/dL (31.8-35.4); Mean Corpuscular Hemoglobin 27.3 pg (27.0-31.2); Mean Corpuscular Volume 88.9 fl (80-94); Mean Platelet Volume 10.6 fl (7.4-10.4); Monocytes # 0.4 K/mm3 (0.1-1.0); Monocytes % 2.6 % (1.7-9.3); Platelet Count 146 K/mm3 (142-424); Red Blood Count 4.54 M/mm3 (4.60-6.20); Red Cell Distribution Width 15.1 % (11.5-17.5); White Blood Count 15.1 K/mm3 (4.8-10.8)
--- NOTE | 2021-11-19 09:19 | HMH.ACPN2 ---
Internal Medicine - PN: Subj *Date: 11/19/21 *Time: 08:45 Interval history: pt laying in bed, Exam Vital signs and Labs for Last 24 Hours: Temp Pulse Resp BP Pulse Ox 98.5 F 116 H 42 H 153/78 H 83 L 11/19/21 08:00 11/19/21 08:00 11/19/21 08:00 11/19/21 08:00 11/19/21 08:00 Laboratory Results - last 24 hr 11/18/21 07:22: Sodium 170 H*, Potassium 4.8, Chloride 145 H, Carbon Dioxide 15 L, Anion Gap 14.8, BUN 100 H D, Creatinine 2.40 H D, Estimated Creat Clear 24, Estimated GFR 27 L, Est GFR ( Amer) 32 L D, Glucose 87 D, Calcium 7.8 L 11/18/21 14:00: Chlamy pneumoniae PCR Not detected, Adenovirus (PCR) Not detected, B. pertussis DNA (PCR) Not detected, Coronavirus OC43 (PCR) Not detected, Coronavirus HKU1 (PCR) Not detected, Coronavirus 229E (PCR) Not detected, Coronavirus NL63 (PCR) Not detected, Human Metapneumovir PCR Not detected, Influenza A (H1) PCR Not detected, Influ A (H1N1/09) PCR Not detected, Influenza A (H3) PCR Not detected, Influenza Type A (PCR) Not detected, Influenza Type B (PCR) Not detected, M. pneumoniae (PCR) Not detected, Parainfluenza 1 (PCR) Not detected, Parainfluenza 2 (PCR) Not detected, Parainfluenza 3 (PCR) Not detected, Parainfluenza 4 (PCR) Not detected, RSV (PCR) Not detected, Entero/Rhino (PCR) Not detected 11/19/21 08:50: Sodium 160 H*, Potassium 4.9, Chloride 134 H, Carbon Dioxide 20 L, Anion Gap 10.9, BUN 58 H D, Creatinine 1.50 H D, Estimated Creat Clear 39, Estimated GFR 46 L, Est GFR ( Amer) 55 L D, Glucose 99, Calcium 7.1 L, Total Bilirubin 0.8, AST 37, ALT 25, Alkaline Phosphatase 75, Total Protein 4.4 L D, Albumin 2.2 L, Globulin 2.2, Albumin/Globulin Ratio 1.0 L I & O for Last 24 hours: Intake & Output 11/16/21 11/17/21 11/18/21 11/19/21 11:59 11:59 11:59 11:59 Intake Total 3809 / 3809 4508 / 4508 Output Total 1800 / 1800 3825 / 3825 Balance 2008 683 / 683 Weight 141 lb 12.8 oz Microbiology Reports for the Last 24 Hours: Microbiology 11/18/21 14:10 Sputum - Nasotracheal Suction Gram Stain - Final 11/17/21 13:55 Urine,Catheterized Urine Culture - Preliminary NO GROWTH AFTER 24 HOURS - Constitutional no acute distress, thin, chronically ill appearing - *Routine HEENT Exam Head: Present: normocephalic Eye: Present: PERRL ENT: Present: mucous membranes moist - *Routine Neck Exam Present: supple. Absent: lymphadenopathy - *Routine Respiratory Exam Present: decreased breath sounds, rhonchi - *Routine Cardiovascular Exam Present: RRR - *Routine Abdominal Exam Present: soft, normoactive bowel sounds. Absent: tenderness - *Routine Extremities Exam Absent: cyanosis, clubbing, edema - *Routine Skin Exam Present: warm. Absent: rash - *Routine Neurological Exam obtund Assessment and Plan (1) Hypernatremia Status: Acute Category: Medical Code(s): E87.0 - Hyperosmolality and hypernatremia (2) Hypovolemic shock Status: Acute Category: Medical Code(s): R57.1 - Hypovolemic shock (3) Rapid atrial fibrillation Status: Acute Category: Medical Code(s): I48.91 - Unspecified atrial fibrillation (4) Closed head injury Status: Acute Qualifiers: Encounter type: initial encounter Qualified Code(s): S09.90XA - Unspecified injury of head, initial encounter Category: Medical Code(s): S09.90XA - Unspecified injury of head, initial encounter (5) Acute renal failure (ARF) Status: Acute Qualifiers: Acute renal failure type: unspecified Qualified Code(s): N17.9 - Acute kidney failure, unspecified Category: Medical Code(s): N17.9 - Acute kidney failure, unspecified - Assessment and plan all Dx Assessment and Plan for all problems:: rounded with dr boss all orders per dr garcias pulm consult abg add clindamyincin
[2021-11-19 09:22] LABS: MANUAL DIFFERENTIAL MANUAL DIFFERENTIAL (MANUAL DIFF)
[2021-11-19 09:30] LABS: ABG Base Excess -7.3 mmol/L (-2.4-2.3); ABG HCO3 16.6 mmhg (22.0-26.0); ABG Oxygen Saturation 88 % (90-100); ABG PH 7.46 mmol/L (7.35-7.45); ABG PO2 55.2 mmhg (80-100); ABG TCO2 17.3 mmhg (23-27)
[2021-11-19 09:31] LABS: Allen's Test ACCEPTABLE; Oxygen 50 %; Source Left Radial
[2021-11-19 09:33] LABS: Lactate Arterial 3.5 mmol/L (0.4-2.0)
--- NOTE | 2021-11-19 09:43 | SW/DCPLANNER ---
This patient currently resides at [facility] under ICF level of care. Updated patient information has been faxed to
--- NOTE | 2021-11-19 10:07 | PC.NURSE ---
pt is roca of the [facility]. Called state appointed guardian number abigail Denny ([phone]). Pressed option 1. Then spoke to Domi Murphy, who states that she is actually the state appointed guardian for this pt. Her number is [phone]. She states that pt is to remain a FULL CODE until RN consultants have been contacted and code status changed. RN consultants are [place]. Their contact is by email .
--- NOTE | 2021-11-19 10:48 | HMH.PULMCON ---
*Admission Date: 11/17/21 *Reason for consult:: Acute hypoxic respiratory failure, hyponatremia *History of present illness: Patient unable to engage in conversation. Much of the history is obtained from chart review. Mr. Cedeño is a 76-year-old residential resident recently has transferred back to residential from a psychiatric facility had a fall status post facial injury 2 days ago, history of paroxysmal A. fib status post unsuccessful cardioversion in 2020 present with worsening hypoxic respiratory failure A. fib RVR electrolyte derangements and hypertension. [facility] History Medical History: Reports:: Atrial Fibrillation, Coronary Artery Disease, Hyperlipidemia, Hypertension Denies:: Diabetes Mellitus Type 1, Diabetes Mellitus Type 2, Seizures *Have you ever received a pneumonia vaccine?: Yes *Have you received a flu vaccine this season?: No Other Surgeries: Yes: No Previous SurgeryComment Only: Other (unknown) - *Social History Smoking Status: Never smoker Alcohol Intake: never Substance Use Type: denies use *Occupational Status:: disabled Housing: assisted living facility Household Members: caregiver *Travel in the last 8 weeks: None Family Hx:: Unable to obtain ROS - Review of Systems Review of systems:: unable to obtain Patient altered unable to engage in conversation Meds Home Medications Medication Instructions Recorded Confirmed Type Apixaban [Eliquis] 5 mg PO BIDWMEAL 06/02/20 11/18/21 History Fenofibrate Nanocrystallized 48 mg PO DAILY 06/02/20 11/17/21 History [Fenofibrate] donepezil 5 mg tablet 10 mg PO DAILY tab 03/13/21 11/17/21 History sertraline 100 mg tablet 25 mg PO DAILY tab 03/13/21 11/17/21 History LORazepam [Ativan 0.5mg 0.5 mg PO Q8HP PRN 11/17/21 11/18/21 History tablet] Megestrol Acetate 400 mg PO DAILY 11/17/21 11/17/21 History Quetiapine Fumarate [Seroquel] 300 mg PO HS 11/17/21 11/17/21 History Acetaminophen 500 mg PO Q6HP PRN 11/18/21 11/18/21 History Aspirin [Aspirin 81mg chewable 81 mg PO DAILY 11/18/21 11/18/21 History tab] Divalproex Sodium [Depakote 750 mg PO BID 11/18/21 11/18/21 History Sprinkle 125mg capsule] Magnesium Hydroxide [Milk of 30 ml PO DAILYP PRN 11/18/21 11/18/21 History Magnesia] Metoprolol Tartrate [Lopressor 100 100 mg PO DAILY 11/18/21 11/18/21 History mg Tablets] lisinopriL [Lisinopril] 20 mg PO DAILY 11/18/21 11/18/21 History Allergies Allergy/AdvReac Type Severity Reaction Status Date / Time No Known Allergies Allergy Verified 11/17/21 15:30 Exam - Constitutional Constitutional:: Absent: no acute distress, comfortable - HENMT Exam HENMT: Present: normocephalic - Eye Exam Eyes:: Present: normal appearance both eyes and related structures - Neck Exam Neck:: Present: normal visual inspection - Respiratory Exam Respiratory:: Present: rhonchi, wheezing. Absent: able to speak in complete sentences - Cardiovascular Exam Cardiac:: Present: S1, S2 - GI Exam GI:: Present: soft - Skin Exam Skin: Present: warm - Neurological Exam Neurological: Absent: alert, awake, normal cognition - Extremities Exam Extremities: Present: no cyanosis, no clubbing Internal Medicine - CN: Reslt - Labs CBC & Chem 7: 11/19/21 08:50 11/19/21 08:50 Labs: Short CBC 11/19/21 Range/Units 08:50 WBC 15.1 H (4.8-10.8) K/mm3 Hgb 12.4 L (14.1-18.0) g/dL Hct 40.3 L (42.0-52.0) % Plt Count 146 D (142-424) K/mm3 [facility] 11/19/21 08:50 Sodium 160 H* Potassium 4.9 Chloride 134 H Carbon Dioxide 20 L BUN 58 H D Creatinine 1.50 H D Glucose 99 Calcium 7.1 L Liver Function 11/19/21 Range/Units 08:50 Total Bilirubin 0.8 (0.2-1.3) mg/dl AST 37 (17-59) U/L ALT 25 (12-78) U/L Alkaline Phosphatase 75 (38-126) U/L Albumin 2.2 L (3.5-5.0) g/dl - ABG Interpretation ABG results: 11/17/21 11/19/21 13:47 08:41 ABG pH 7.33 L 7.46 H ABG pCO2 36.0 24.0
--- NOTE | 2021-11-19 11:17 | HMH.CNCARD ---
History of Present Illness Consult date: 11/19/21 Requesting physician: Augustine Baptiste Consult reason: atrial fibrillation Chief complaint: afib History of present illness: This is a 76-year-old white gentleman who resides at a custodial and was transported to the emergency department here at [facility] secondary to being found having Howie-Clayton respirations with periods of apnea, rapid atrial fibrillation, low blood pressure and low pulse oximetry readings. The patient's blood pressure was in the 70s systolic reported by EMS and his oxygen saturations were 79% on EMS arrival. The patient was given fluid boluses and a nonrebreather mask was applied in route to the hospital. As mentioned before he does reside in a custodial and was treated in a psychiatric inpatient facility recently and since being back at the custodial on 11/09/2021 he has been nonverbal and zonked. The patient has a known history of atrial fibrillation with an unsuccessful cardioversion March 30, 2021. He has been on metoprolol for rate control since then as well as Eliquis for long-term anticoagulation. The patient has not been taking any of his oral medications since being back at the nursing facility due to his somnolence and inability to follow commands. As mentioned above the patient was in atrial fibrillation with RVR on arrival to the emergency department. He remains on a diltiazem drip with better rate control and he is also received a few doses of IV metoprolol. The patient is on a Ventimask this morning. His vital signs are stable except for still being somewhat tachycardic despite being on the diltiazem drip. Patient is not answering any my questions and he does not follow any commands. All of his history is obtained from his medical records. [facility] History I have reviewed the patient's past medical history: Yes Medical History: Reports:: Atrial Fibrillation, Coronary Artery Disease, Hyperlipidemia, Hypertension Denies:: Diabetes Mellitus Type 1, Diabetes Mellitus Type 2, Seizures *Have you ever received a pneumonia vaccine?: Yes *Have you received a flu vaccine this season?: No Other Surgeries: Yes: No Previous SurgeryComment Only: Other (unknown) - *Social History Smoking Status: Never smoker Alcohol Intake: never Substance Use Type: denies use *Occupational Status:: disabled Housing: assisted living facility Household Members: caregiver *Travel in the last 8 weeks: None Family Hx:: Unable to obtain Meds Home Medications Medication Instructions Recorded Confirmed Type Apixaban [Eliquis] 5 mg PO BIDWMEAL 06/02/20 11/18/21 History Fenofibrate Nanocrystallized 48 mg PO DAILY 06/02/20 11/17/21 History [Fenofibrate] donepezil 5 mg tablet 10 mg PO DAILY tab 03/13/21 11/17/21 History sertraline 100 mg tablet 25 mg PO DAILY tab 03/13/21 11/17/21 History LORazepam [Ativan 0.5mg 0.5 mg PO Q8HP PRN 11/17/21 11/18/21 History tablet] Megestrol Acetate 400 mg PO DAILY 11/17/21 11/17/21 History Quetiapine Fumarate [Seroquel] 300 mg PO HS 11/17/21 11/17/21 History Acetaminophen 500 mg PO Q6HP PRN 11/18/21 11/18/21 History Aspirin [Aspirin 81mg chewable 81 mg PO DAILY 11/18/21 11/18/21 History tab] Divalproex Sodium [Depakote 750 mg PO BID 11/18/21 11/18/21 History Sprinkle 125mg capsule] Magnesium Hydroxide [Milk of 30 ml PO DAILYP PRN 11/18/21 11/18/21 History Magnesia] Metoprolol Tartrate [Lopressor 100 100 mg PO DAILY 11/18/21 11/18/21 History mg Tablets] lisinopriL [Lisinopril] 20 mg PO DAILY 11/18/21 11/18/21 History Allergies Allergy/AdvReac Type Severity Reaction Status Date / Time No Known Allergies Allergy Verified 11/17/21 15:30 Exam Vital signs and Labs for Last 24 Hours: Temp Pulse Resp BP Pulse Ox 98.5 F 114 H 27 H 89/50 L 92 L 11/19/21 08:00 11/19/21 11:00 11/19/21 11:00 11/19/21 11:00 11/19/21 11:00 Laboratory Results - last 24 hr 11/18/21 14:00: Paige
[2021-11-19 13:44] LABS: Lymphocytes % 14 % (10-50); Monocytes % 4 % (2-9); Neutrophils % 82 % (42-76); Total Cells Counted 100
[2021-11-19 13:45] LABS: Hypochromasia 1+; Platelet Estimate Normal
--- NOTE | 2021-11-19 13:45 | XR_ITS ---
FINAL REPORT CLINICAL HISTORY: resp distress COMPARISON: 6 hours prior FINDINGS: The heart size is normal. The mediastinum is normal. There is persistent right base and worsening left base opacity consistent with worsening pneumonia or atelectasis. There are no pleural effusions. There is no pneumothorax. There is no osseous abnormality. IMPRESSION: Worsening pneumonia or atelectasis. Reviewed, Interpreted and Dictated by Daren Alfonso III, MD Transcribed by Robin Zamora Authenticated by Daren Alfonso III, MD on 11/19/2021 03:18:16 PM [facility]
[2021-11-19 15:40] LABS: Blood Urea Nitrogen 55 mg/dl (9-20); Carbon Dioxide 16 mmol/L (22.0-30.0); Creatinine Clearance Estimated 39 mL/min (50-200); Estimated Glomerular Filt Rate 46 ml/min (>60); GFR (African American) 55 ML/MIN (>60)
[2021-11-19 15:41] LABS: Calcium 6.8 mg/dl (8.4-10.2); Glucose 102 mg/dl (74-100)
[2021-11-19 15:46] LABS: Chloride 136 mmol/L (98-107); Sodium 161 mmol/L (136-145)
--- NOTE | 2021-11-19 15:47 | PC.NURSE ---
received call from lab reporting Na 161 and Cl 136. Name and verified. Dr. Mcdonald updated.
[2021-11-19 18:35] LABS: Potassium 3.7 mmoL/L (3.5-5.1)
[2021-11-19 18:38] LABS: Blood Urea Nitrogen 54 mg/dl (9-20); Creatinine Clearance Estimated 39 mL/min (50-200); Estimated Glomerular Filt Rate 46 ml/min (>60); GFR (African American) 55 ML/MIN (>60)
[2021-11-19 18:39] LABS: Calcium 7.1 mg/dl (8.4-10.2); Carbon Dioxide 18 mmol/L (22.0-30.0); Chloride 133 mmol/L (98-107); Glucose 147 mg/dl (74-100); Sodium 157 mmol/L (136-145)
[2021-11-19 18:40] LABS: Anion Gap 9.7 mEq/L (5-15)
--- NOTE | 2021-11-19 18:40 | PC.NURSE ---
received call from lab reporting Na 157 and Cl 133. Name and verified. Dr. Mcdonald notified.
--- NOTE | 2021-11-19 20:00 | PC.NURSE ---
spoke with MD Klein about pt's decreased oxygen saturations even after NT suctioning, instructed to place non-rebreather on pt
--- NOTE | 2021-11-19 20:10 | PC.NURSE ---
spoke with MD Baptiste about pt's vital signs and extreme restlessness, stated would look through chart and possibly place orders
[2021-11-20] VITALS (17 sets, daily range): BP systolic 86–125; BP diastolic 39–67; PULSE 84–124; RESP 18–44; TEMP 36.6–37.2; O2SAT 84–94; BMI 18.5
[2021-11-20 05:35] LABS: Basophils # 0.1 K/mm3 (0-0.2); Basophils % 0.7 % (0.1-2.0); Eosinophils # 0.1 K/mm3 (0.0-0.4); Eosinophils % 0.4 % (0.1-12.0); Hematocrit 37.7 % (42.0-52.0); Hemoglobin 11.6 g/dL (14.1-18.0); Lymphocytes # 0.3 K/mm3 (0.7-4.5); Lymphocytes % 1.8 % (10-50); Mean Corpuscular HGB Conc 30.7 g/dL (31.8-35.4); Mean Corpuscular Hemoglobin 27.5 pg (27.0-31.2); Mean Corpuscular Volume 89.7 fl (80-94); Mean Platelet Volume 10.5 fl (7.4-10.4); Monocytes # 0.4 K/mm3 (0.1-1.0); Monocytes % 2.7 % (1.7-9.3); Neutrophils # 13.7 K/mm3 (1.8-7.8); Neutrophils % 94.4 % (37.0-80.0); Platelet Count 133 K/mm3 (142-424); Red Cell Distribution Width 15.5 % (11.5-17.5); White Blood Count 14.5 K/mm3 (4.8-10.8)
[2021-11-20 05:39] LABS: Potassium 3.2 mmoL/L (3.5-5.1)
[2021-11-20 05:40] LABS: MANUAL DIFFERENTIAL MANUAL DIFFERENTIAL (MANUAL DIFF)
[2021-11-20 05:42] LABS: Anion Gap 7.2 mEq/L (5-15); Blood Urea Nitrogen 41 mg/dl (9-20); Calcium 6.3 mg/dl (8.4-10.2); Carbon Dioxide 18 mmol/L (22.0-30.0); Creatinine Clearance Estimated 48 mL/min (50-200); Estimated Glomerular Filt Rate 59 ml/min (>60); GFR (African American) 71 ML/MIN (>60); Glucose 138 mg/dl (74-100)
[2021-11-20 05:56] LABS: Chloride 134 mmol/L (98-107); Sodium 156 mmol/L (136-145)
--- NOTE | 2021-11-20 05:57 | PC.NURSE ---
notified MD Baptiste of pt's critical sodium and chloride, no new orders at this time
[2021-11-20 06:16] LABS: Alanine Aminotransferase 18 U/L (12-78); Alkaline Phosphatase 53 U/L (38-126); Aspartate Amino Transferase 29 U/L (17-59); Bilirubin,Direct 0.3 mg/dl (0.0-0.4); Bilirubin,Indirect 0.2 mg/dL (0.0-0.9); Bilirubin,Total 0.5 mg/dl (0.2-1.3); Bilirubin,Unconjugated 0.2 mg/dL (0.0-1.1)
[2021-11-20 06:17] LABS: Albumin Level 1.8 g/dl (3.5-5.0); HDL Cholesterol 10 mg/dl (40-60); Total Protein,Serum 4.2 g/dl (6.3-8.2); Triglycerides 70 mg/dl (30-150); VLDL Cholesterol 14 mg/dL (0-40)
[2021-11-20 06:34] LABS: Direct LDL Cholesterol < 30.00 mg/dL (100-129)
[2021-11-20 07:03] LABS: Cholesterol 50 mg/dl (140-200)
--- NOTE | 2021-11-20 08:10 | PC.NURSE ---
RESP CARE NOTE: Pt NT suctioned via nasal trumpet. Large amounts creamy bloody secretions obtained. Nasal trumpet also removed due to 24 hours in left nare. Will continue to monitor patient.
[2021-11-20 08:27] LABS: Lymphocytes % 3 % (10-50); Monocytes % 4 % (2-9); Neutrophils % 93 % (42-76); Total Cells Counted 100
[2021-11-20 08:28] LABS: Hypochromasia 1+; Platelet Estimate Normal
--- NOTE | 2021-11-20 09:24 | HMH.PULMPN ---
Internal Medicine - PN: Subj *Date: 11/20/21 *Time: 10:50 Interval history: Worsening respiratory status overnight. Exam - Constitutional Constitutional:: Absent: no acute distress, comfortable - HENMT Exam HENMT: Present: normocephalic - Eye Exam Eyes:: Present: normal appearance both eyes and related structures - Neck Exam Neck:: Present: normal visual inspection - Respiratory Exam Respiratory:: Present: respiratory distress, rhonchi - Cardiovascular Exam Cardiac:: Present: S1, S2 - GI Exam GI:: Present: soft - Neurological Exam Neurological: Absent: alert, awake, normal cognition - Extremities Exam Extremities: Present: no cyanosis, no clubbing Assessment and Plan (1) Hypernatremia Status: Acute Category: Medical Code(s): E87.0 - Hyperosmolality and hypernatremia (2) Hypovolemic shock Status: Acute Category: Medical Code(s): R57.1 - Hypovolemic shock (3) Rapid atrial fibrillation Status: Acute Category: Medical Code(s): I48.91 - Unspecified atrial fibrillation (4) Closed head injury Status: Acute Qualifiers: Qualified Code(s): S09.90XA - Unspecified injury of head, initial encounter Category: Medical Code(s): S09.90XA - Unspecified injury of head, initial encounter (5) Acute renal failure (ARF) Status: Acute Qualifiers: Qualified Code(s): N17.9 - Acute kidney failure, unspecified Category: Medical Code(s): N17.9 - Acute kidney failure, unspecified - Assessment and plan all Dx Assessment and Plan for all problems:: #Acute hypoxic respiratory failure: # CAP: #Hypernatremia: 76-year-old, history obtained from chart review. Presented with altered mentation, acute hypoxic respiratory failure hypernatremia A. fib RVR. Leukocytosis on admission. Afebrile. Chest x-ray clear and with no acute pulmonary infiltrates. Sodium 170 on admission, within normal limits in September, unclear of acute or chronic onset. Corrected to 160 in 24 hours. Also noted to have VEGA on CKD, improved. Baseline creatinine 1.6-1.4 on his prior admissions. Patient new medications from his recent admission include Seroquel and sertraline. Receiving clindamycin and levofloxacin this morning. Sputum growing gram-positive cocci in pairs. Currently on Ventimask. Recent CXR, worsening right lower lobe pulmonary infiltrate. Interval update: Repeat sodium at 156. Continue to receive D5 water at 100/h. Will increase to 150. Also replete 40 IV KCl. Renal function improved. Continued to be altered, unable to clear secretions. Increasing oxygen requirements and nonrebreather. Copious amount of secretions. No cough reflex. Significantly contributing to his respiratory distress. Blood gas this morning 100% nonrebreather showed pH of 7.49 with a PCO2 of 23 and PO2 of 58. We will closely monitor. Patient respiratory status is very tenuous. I was informed that patient is a wandering of state. We will continue to monitor and I am concerned the patient were to be intubated he will likely be a difficuly Extubation and might likely needed tracheostomy. We will closely monitor. No improvement in altered mentation. Plan: -Follow-up with CTA chest and CT head without contrast -Repeat tracheal aspirate cultures continue levofloxacin and clindamycin pending final sputum cultures and CT imaging. BC pending. UC no growth 24 hrs Follow with nasal MRSA PCR. -DuoNebs every 6 hours and scheduled basis. Continue D5 water, increase rate to 150/h. Follow with BMP in 4 hrs -F/U Cardiology recommendations -NPO. Strict aspiration precautions. #Thank you for involving pulmonary this patient care. We will continue to follow.
--- NOTE | 2021-11-20 09:31 | HMH.ACPN2 ---
Internal Medicine - PN: Subj *Date: 11/20/21 *Time: 12:45 Interval history: 26-year-old male patient resting in bed oxygen requirements have increased to nonrebreather and current oxygenation is 90%. Kidney function has improved and we will order chest CTA and head CT without contrast. Sputum has revealed MRSA and he is on clindamycin IV Exam Vital signs and Labs for Last 24 Hours: Temp Pulse Resp BP Pulse Ox 98.6 F 106 H 24 101/49 L 94 L 11/20/21 07:51 11/20/21 06:00 11/20/21 06:00 11/20/21 06:00 11/20/21 06:00 Laboratory Results - last 24 hr 11/19/21 08:41: ABG Lactate 3.5 H 11/19/21 08:41: Specimen Source Left radial, O2 % 50, ABG pH 7.46 H, ABG pCO2 24.0 L, ABG pO2 55.2 L, ABG HCO3 16.6 L, ABG Total CO2 17.3 L, ABG O2 Saturation 88 L, ABG Base Excess -7.3 L, Blayne Test Acceptable 11/19/21 08:50: Total Counted 100, Neutrophils % (Manual) 82 H, Lymphocytes % (Manual) 14, Monocytes % (Manual) 4, Platelet Estimate Normal, Hypochromasia 1+ 11/19/21 13:50: Sodium 161 H*, Potassium 4.0, Chloride 136 H, Carbon Dioxide 16 L, Anion Gap 13.0, BUN 55 H, Creatinine 1.50 H, Estimated Creat Clear 39, Estimated GFR 46 L, Est GFR ( Amer) 55 L, Glucose 102 H, Calcium 6.8 L 11/19/21 18:05: Sodium 157 H*, Potassium 3.7, Chloride 133 H, Carbon Dioxide 18 L, Anion Gap 9.7, BUN 54 H, Creatinine 1.50 H, Estimated Creat Clear 39, Estimated GFR 46 L, Est GFR ( Amer) 55 L, Glucose 147 H D, Calcium 7.1 L 11/20/21 05:30: WBC 14.5 H, RBC 4.20 L, Hgb 11.6 L, Hct 37.7 L, MCV 89.7, MCH 27.5, MCHC 30.7 L, RDW 15.5, Plt Count 133 L, MPV 10.5 H, Neut % (Auto) 94.4 H, Lymph % (Auto) 1.8 L, Frio % (Auto) 2.7, Eos % (Auto) 0.4, Baso % (Auto) 0.7, Neut # (Auto) 13.7 H, Lymph # (Auto) 0.3 L, Frio # (Auto) 0.4, Eos # (Auto) 0.1, Baso # (Auto) 0.1, Total Counted 100, Neutrophils % (Manual) 93 H, Lymphocytes % (Manual) 3 L, Monocytes % (Manual) 4, Platelet Estimate Normal, Hypochromasia 1+ 11/20/21 05:30: Sodium 156 H*, Potassium 3.2 L, Chloride 134 H, Carbon Dioxide 18 L, Anion Gap 7.2, BUN 41 H, Creatinine 1.20, Estimated Creat Clear 48, Estimated GFR 59, Est GFR ( Amer) 71 D, Glucose 138 H, Calcium 6.3 L 11/20/21 05:30: Total Bilirubin 0.5, Direct Bilirubin 0.3, Conjugated Bilirubin 0.0, Indirect Bilirubin 0.2, Unconjugated Bilirubin 0.2, AST 29, ALT 18 D, Alkaline Phosphatase 53, Total Protein 4.2 L, Albumin 1.8 L D, Triglycerides 70, Cholesterol 50 L, LDL Cholesterol Direct < 30.00 L, VLDL Cholesterol 14, HDL Cholesterol 10 L, Cholesterol/HDL Ratio 5.0 H I & O for Last 24 hours: Intake & Output 11/17/21 11/18/21 11/19/21 11/20/21 23:59 23:59 23:59 23:59 Intake Total 5905 / 5905 4064 / 4064 1480 / 1480 Output Total 4275 / 5175 1650 / 1650 450 / 450 Balance 1630 / 730 2414 / 2414 1030 / 1030 Weight 141 lb 12.8 oz 141 lb 1.533 oz 137 lb Microbiology Reports for the Last 24 Hours: Microbiology 11/17/21 13:55 Urine,Catheterized Urine Culture - Final NO GROWTH AFTER 48 HOURS 11/17/21 13:55 Blood Blood Culture - Preliminary NO GROWTH AFTER 48 HOURS 11/17/21 13:55 Blood Blood Culture - Preliminary NO GROWTH AFTER 48 HOURS 11/18/21 14:10 Sputum - Nasotracheal Suction Gram Stain - Final 11/18/21 14:10 Sputum - Nasotracheal Suction Sputum Culture - Preliminary Gram Positive Cocci - Constitutional no acute distress, chronically ill appearing - *Routine Respiratory Exam Present: rhonchi, wheezes. Absent: accessory muscle use - *Routine Cardiovascular Exam Present: RRR - *Routine Abdominal Exam Present: soft, normoactive bowel sounds. Absent: distended, firm - *Routine Extremities Exam Present: full ROM. Absent: cyanosis, clubbing, edema - *Routine Skin Exam Present: intact, dry. Absent: cyanosis, erythema - *Routine Neurological Exam Present: altered mental status - Routine Psychiatr
[2021-11-20 10:28] LABS: ABG Base Excess -5.6 mmol/L (-2.4-2.3); ABG HCO3 17.7 mmhg (22.0-26.0); ABG Oxygen Saturation 90 % (90-100); ABG PCO2 23.5 mmhg (35.0-45.0); ABG TCO2 18.4 mmhg (23-27)
[2021-11-20 10:30] LABS: Allen's Test Acceptable; Oxygen 100 NRB %; Source Right Radial
[2021-11-20 10:31] LABS: Lactate Arterial 2.3 mmol/L (0.4-2.0)
--- NOTE | 2021-11-20 10:52 | CT_ITS ---
FINAL REPORT CLINICAL HISTORY: Alteted Mental Status. PATIENT UNABLE TO STAY STILL. SENT OVER BEST POSSIBLE IMAGES. COMPARISON: 11/15/2021 FINDINGS: Axial images of the head were obtained without contrast. Coronal reformatted images were also obtained. This study was performed with techniques to keep radiation doses as low as reasonably achievable (ALARA). Individualized dose reduction techniques using automated exposure control or adjustment of mA and/or kV according to the patient's size were employed. There is generalized age-appropriate atrophy. Periventricular low-attenuation areas are seen consistent with mild chronic ischemic changes. There is no evidence of intracranial hemorrhage or mass. There is no evidence of acute infarct. There is no evidence of shift of the midline structures. No skull abnormality is seen on the bone window images. IMPRESSION: Atrophy and mild periventricular chronic ischemic changes. No acute intracranial abnormality identified. Reviewed, Interpreted and Dictated by Daren Alfonso III, MD Transcribed by Angela Ley Authenticated by Daren Alfonso III, MD on 11/20/2021 02:02:51 PM [facility]
--- NOTE | 2021-11-20 10:57 | HMH.PNCARD ---
Subjective Date: 11/20/21 Time: 10:00 Principal diagnosis: afib with rvr Interval history: This is a 76-year-old white gentleman [facility] and was transported here to [facility] after being found to have Howie-Clayton respirations with periods of apnea, atrial fibrillation with RVR, low blood pressure and low pulse oximetry readings. Once in the hospital the patient was found to be in atrial fibrillation with RVR and he was started on a diltiazem drip. He has better rate control with the diltiazem drip and is on Lovenox for anticoagulation. The patient is on a nonrebreather this morning. He does not follow any of my commands or answer any of my questions. He appears to be in no distress this morning. All of his history is obtained from past medical records. Exam Vital signs and Labs for Last 24 Hours: Temp Pulse Resp BP Pulse Ox 97.8 F 84 26 H 96/55 L 90 L 11/20/21 08:00 11/20/21 10:00 11/20/21 10:00 11/20/21 10:00 11/20/21 10:00 Laboratory Results - last 24 hr 11/19/21 08:50: Total Counted 100, Neutrophils % (Manual) 82 H, Lymphocytes % (Manual) 14, Monocytes % (Manual) 4, Platelet Estimate Normal, Hypochromasia 1+ 11/19/21 13:50: Sodium 161 H*, Potassium 4.0, Chloride 136 H, Carbon Dioxide 16 L, Anion Gap 13.0, BUN 55 H, Creatinine 1.50 H, Estimated Creat Clear 39, Estimated GFR 46 L, Est GFR ( Amer) 55 L, Glucose 102 H, Calcium 6.8 L 11/19/21 18:05: Sodium 157 H*, Potassium 3.7, Chloride 133 H, Carbon Dioxide 18 L, Anion Gap 9.7, BUN 54 H, Creatinine 1.50 H, Estimated Creat Clear 39, Estimated GFR 46 L, Est GFR ( Amer) 55 L, Glucose 147 H D, Calcium 7.1 L 11/20/21 05:30: WBC 14.5 H, RBC 4.20 L, Hgb 11.6 L, Hct 37.7 L, MCV 89.7, MCH 27.5, MCHC 30.7 L, RDW 15.5, Plt Count 133 L, MPV 10.5 H, Neut % (Auto) 94.4 H, Lymph % (Auto) 1.8 L, Starke % (Auto) 2.7, Eos % (Auto) 0.4, Baso % (Auto) 0.7, Neut # (Auto) 13.7 H, Lymph # (Auto) 0.3 L, Starke # (Auto) 0.4, Eos # (Auto) 0.1, Baso # (Auto) 0.1, Total Counted 100, Neutrophils % (Manual) 93 H, Lymphocytes % (Manual) 3 L, Monocytes % (Manual) 4, Platelet Estimate Normal, Hypochromasia 1+ 11/20/21 05:30: Sodium 156 H*, Potassium 3.2 L, Chloride 134 H, Carbon Dioxide 18 L, Anion Gap 7.2, BUN 41 H, Creatinine 1.20, Estimated Creat Clear 48, Estimated GFR 59, Est GFR ( Amer) 71 D, Glucose 138 H, Calcium 6.3 L 11/20/21 05:30: Total Bilirubin 0.5, Direct Bilirubin 0.3, Conjugated Bilirubin 0.0, Indirect Bilirubin 0.2, Unconjugated Bilirubin 0.2, AST 29, ALT 18 D, Alkaline Phosphatase 53, Total Protein 4.2 L, Albumin 1.8 L D, Triglycerides 70, Cholesterol 50 L, LDL Cholesterol Direct < 30.00 L, VLDL Cholesterol 14, HDL Cholesterol 10 L, Cholesterol/HDL Ratio 5.0 H 11/20/21 10:24: Specimen Source Right radial, O2 % 100 nrb, ABG pH 7.50 H, ABG pCO2 23.5 L, ABG pO2 58.0 L, ABG HCO3 17.7 L, ABG Total CO2 18.4 L, ABG O2 Saturation 90, ABG Base Excess -5.6 L, Blayne Test Acceptable, ABG Lactate 2.3 H I & O for Last 24 hours: Intake & Output 11/17/21 11/18/21 11/19/21 11/20/21 23:59 23:59 23:59 23:59 Intake Total 5905 / 5905 4064 / 4064 1480 / 1480 Output Total 4275 / 5175 1650 / 1650 450 / 450 Balance 1630 / 730 2414 / 2414 1030 / 1030 Weight 141 lb 12.8 oz 141 lb 1.533 oz 137 lb Microbiology Reports for the Last 24 Hours: Microbiology 11/18/21 14:10 Sputum - Nasotracheal Suction Gram Stain - Final 11/18/21 14:10 Sputum - Nasotracheal Suction Sputum Culture - Final Staphylococcus aureus 11/17/21 13:55 Urine,Catheterized Urine Culture - Final NO GROWTH AFTER 48 HOURS 11/17/21 13:55 Blood Blood Culture - Preliminary NO GROWTH AFTER 48 HOURS 11/17/21 13:55 Blood Blood Culture - Preliminary NO GROWTH AFTER 48 HOURS Narrative: Telemetry strip shows atrial fibrillation with a rate of 106. Echo shows: 1. James
--- NOTE | 2021-11-20 11:26 | DIET.NUTRFU ---
The patient is on a nonrebreather this morning. He is unable to commands or answer questions. Unable to eat, aspiration risk. When and if he becomes more alert will benefit from PROPERTY CONDITION ASSESSOR eval to determine safe diet. Currently on dextrose for hydration, Labs slightly improving: Na 156H, K 3.2L, BUN 41H, Cr 1.2, Glucose 138H. Continues to be Full Code, warded to state, from [place]
--- NOTE | 2021-11-20 13:16 | CT_ITS ---
FINAL REPORT TECHNIQUE: Then section axial CT images of the chest were obtained with contrast. Three-D reformatted images were also obtained.This study was performed with techniques to keep radiation doses as low as reasonably achievable (ALARA). Individualized dose reduction techniques using automated exposure control or adjustment of mA and/or kV according to the patient''s size were employed. CLINICAL HISTORY: Hypoxia FINDINGS: There is a 38 mm left thyroid mass. There is no evidence of pulmonary embolism. The small lower lobe branches are obscured by atelectasis and motion. There is no evidence of thoracic aortic aneurysm or dissection. There is no evidence of mediastinal or hilar mass or adenopathy. There are bilateral areas of consolidation most worrisome for bilateral pneumonia. There is bilateral lower lobe atelectasis and small pleural effusions. Limited images of the upper abdomen demonstrate the gallbladder is moderately distended with multiple gallstones. IMPRESSION: No evidence of pulmonary embolism. Areas of consolidation most worrisome for bilateral pneumonia. Left thyroid mass. Dedicated thyroid ultrasound is recommended. Cholelithiasis. Reviewed, Interpreted and Dictated by Daren Alfonso III, MD Transcribed by Angela Ley Authenticated by Daren Alfonso III, MD on 11/20/2021 03:35:10 PM [facility]
[2021-11-20 15:27] LABS: Potassium 3.5 mmoL/L (3.5-5.1)
[2021-11-20 15:30] LABS: Blood Urea Nitrogen 41 mg/dl (9-20); Calcium 6.3 mg/dl (8.4-10.2); Carbon Dioxide 17 mmol/L (22.0-30.0); Creatinine Clearance Estimated 47 mL/min (50-200); Estimated Glomerular Filt Rate 59 ml/min (>60); GFR (African American) 71 ML/MIN (>60); Glucose 111 mg/dl (74-100)
[2021-11-20 15:43] LABS: Anion Gap 8.5 mEq/L (5-15); Chloride 134 mmol/L (98-107)
[2021-11-20 15:44] LABS: Sodium 156 mmol/L (136-145)
--- NOTE | 2021-11-20 21:00 | PC.NURSE ---
pt was satting 82-85% most of shift, pt desatted to 78%, RT Will NT suctioned pt and pt's sats came up to 80-81%, notified MD Ramos oncmelanie for MD Emile ordered jovany cornell, RT to give neb treatment
--- NOTE | 2021-11-20 21:10 | PC.NURSE ---
pt's oxygen saturations 84-85% after neb treatment
--- NOTE | 2021-11-20 21:30 | PC.NURSE ---
RT Will spoke with MD Baptiste and frank to place pt on bipap, after placing pt on bipap sats 90-92%
[2021-11-21] VITALS (20 sets, daily range): BP systolic 70–142; BP diastolic 30–72; PULSE 91–117; RESP 16–53; TEMP 36.4–37.2; O2SAT 81–96; BMI 19.1
[2021-11-21 06:14] LABS: Basophils # 0.1 K/mm3 (0-0.2); Basophils % 0.4 % (0.1-2.0); Eosinophils # 0.1 K/mm3 (0.0-0.4); Eosinophils % 0.2 % (0.1-12.0); Hematocrit 38.3 % (42.0-52.0); Hemoglobin 11.9 g/dL (14.1-18.0); Lymphocytes # 0.5 K/mm3 (0.7-4.5); Lymphocytes % 1.5 % (10-50); Mean Corpuscular Hemoglobin 27.9 pg (27.0-31.2); Mean Corpuscular Volume 89.8 fl (80-94); Mean Platelet Volume 11.1 fl (7.4-10.4); Monocytes # 0.6 K/mm3 (0.1-1.0); Monocytes % 1.9 % (1.7-9.3); Neutrophils # 30.6 K/mm3 (1.8-7.8); Platelet Count 217 K/mm3 (142-424); Red Blood Count 4.27 M/mm3 (4.60-6.20); Red Cell Distribution Width 15.6 % (11.5-17.5); White Blood Count 31.9 K/mm3 (4.8-10.8)
[2021-11-21 06:21] LABS: MANUAL DIFFERENTIAL MANUAL DIFFERENTIAL (MANUAL DIFF)
[2021-11-21 06:31] LABS: Blood Urea Nitrogen 42 mg/dl (9-20); Calcium 6.8 mg/dl (8.4-10.2); Carbon Dioxide 19 mmol/L (22.0-30.0); Creatinine Clearance Estimated 41 mL/min (50-200); Estimated Glomerular Filt Rate 49 ml/min (>60); GFR (African American) 60 ML/MIN (>60); Glucose 115 mg/dl (74-100)
[2021-11-21 07:03] LABS: Chloride 128 mmol/L (98-107); Sodium 153 mmol/L (136-145)
[2021-11-21 09:02] LABS: Hypochromasia 1+; Lymphocytes % 8 % (10-50); Monocytes % 5 % (2-9); Neutrophils % 87 % (42-76); Platelet Estimate Normal; Total Cells Counted 100
--- NOTE | 2021-11-21 09:32 | PC.NURSE ---
received call from lab reporting MRSA nasal screen is positive. Name and verified. Dr. Mcdonald updated.
--- NOTE | 2021-11-21 10:28 | HMH.PNCARD ---
Subjective Date: 11/21/21 Time: 09:00 Principal diagnosis: afib with rvr Interval history: This is a 76-year-old gentleman who resides at a senior care was transported here to [facility] after being found to have [place] respirations with periods of apnea, rapid atrial fibrillation, hypotension and low pulse oximetry readings. The patient was found to be in atrial fibrillation with RVR upon arrival here to the hospital. He remains on a diltiazem drip for rate control and his heart rate is in the 110s this morning. He was previously on Eliquis for long-term anticoagulation but is unable to take oral medications and has been switched over to Lovenox. The patient is on a BiPAP this morning and appears to be very uncomfortable. He is not answering any my questions or following any my commands. He will likely end up intubated and on the ventilator today. All of his history is obtained from his medical records. Exam Vital signs and Labs for Last 24 Hours: Temp Pulse Resp BP Pulse Ox 98.2 F 115 H 37 H 106/55 L 83 L 11/21/21 08:00 11/21/21 06:00 11/21/21 06:00 11/21/21 06:00 11/21/21 06:00 Laboratory Results - last 24 hr 11/20/21 10:24: Specimen Source Right radial, O2 % 100 nrb, ABG pH 7.50 H, ABG pCO2 23.5 L, ABG pO2 58.0 L, ABG HCO3 17.7 L, ABG Total CO2 18.4 L, ABG O2 Saturation 90, ABG Base Excess -5.6 L, Blayne Test Acceptable, ABG Lactate 2.3 H 11/20/21 14:53: Sodium 156 H*, Potassium 3.5, Chloride 134 H, Carbon Dioxide 17 L, Anion Gap 8.5, BUN 41 H, Creatinine 1.20, Estimated Creat Clear 47, Estimated GFR 59, Est GFR ( Amer) 71, Glucose 111 H, Calcium 6.3 L 11/21/21 06:10: WBC 31.9 H* D, RBC 4.27 L, Hgb 11.9 L, Hct 38.3 L, MCV 89.8, MCH 27.9, MCHC 31.0 L, RDW 15.6, Plt Count 217 D, MPV 11.1 H, Neut % (Auto) 96.0 H, Lymph % (Auto) 1.5 L, [place] % (Auto) 1.9, Eos % (Auto) 0.2, Baso % (Auto) 0.4, Neut # (Auto) 30.6 H, Lymph # (Auto) 0.5 L, [place] # (Auto) 0.6, Eos # (Auto) 0.1, Baso # (Auto) 0.1, Total Counted 100, Neutrophils % (Manual) 87 H, Lymphocytes % (Manual) 8 L, Monocytes % (Manual) 5, Platelet Estimate Normal, Hypochromasia 1+ 11/21/21 06:10: Sodium 153 H*, Potassium 3.0 L, Chloride 128 H, Carbon Dioxide 19 L, Anion Gap 9.0, BUN 42 H, Creatinine 1.40 H, Estimated Creat Clear 41, Estimated GFR 49 L, Est GFR ( Amer) 60, Glucose 115 H, Calcium 6.8 L I & O for Last 24 hours: Intake & Output 11/18/21 11/19/21 11/20/21 11/21/21 23:59 23:59 23:59 23:59 Intake Total 5905 / 5905 4064 / 4064 2716 / 2716 2123 / 2123 Output Total 4275 / 5175 1650 / 1650 1850 / 3050 1700 / 1700 Balance 1630 / 730 2414 / 2414 866 / -334 423 / 423 Weight 141 lb 1.533 oz 137 lb 141 lb 6.4 oz Microbiology Reports for the Last 24 Hours: Microbiology 11/19/21 11:10 Nose - Nasal MRSA Culture - Final 11/21/21 00:00 Sputum - Nasotracheal Suction Gram Stain - Final 11/18/21 14:10 Sputum - Nasotracheal Suction Gram Stain - Final 11/18/21 14:10 Sputum - Nasotracheal Suction Sputum Culture - Final Staphylococcus aureus Narrative: Telemetry strip shows atrial fibrillation with a rate of 106. - Constitutional no acute distress, average body habitus, agitated - *Routine HEENT Exam Head: Present: normocephalic, atraumatic ENT: Present: mucous membranes moist - *Routine Neck Exam Present: supple, full ROM, normal carotid upstroke. Absent: JVD, carotid bruit, lymphadenopathy - *Routine Respiratory Exam Present: rhonchi, wheezes - *Routine Cardiovascular Exam Present: Normal S1, Normal S2, tachycardia, irregularly irregular. Absent: murmur - *Routine Abdominal Exam Present: soft, normoactive bowel sounds. Absent: tenderness, distended - *Routine Extremities Exam Present: pulses intact, normal capillary refill. Absent: cyanosis, clubbing, edema - *Routine Skin Exam Present: warm. Absent: rash - *Routine Neurological Exam Present: altered mental status Pro
--- NOTE | 2021-11-21 10:30 | XR_ITS ---
FINAL REPORT CLINICAL HISTORY: poss left pneumo, chest tube placement, ng placement, et tube placement COMPARISON: 11/19/2021 FINDINGS: A single view of the chest was obtained. There is a new endotracheal tube with the tip 3 cm above the shanta. A left chest tube is present. The heart is normal in size. The mediastinum is unremarkable. There is no definite pneumothorax. There are worsening pulmonary opacities favored to represent pulmonary edema. There is a small amount of left chest wall air. IMPRESSION: Endotracheal tube and chest tube in good position. No definite pneumothorax. Worsening pulmonary opacities favored to represent pulmonary edema. Small amount of left chest wall air. Reviewed, Interpreted and Dictated by Daren Alfonso III, MD Transcribed by Angela Ley Authenticated by Daren Alfonso III, MD on 11/21/2021 12:34:55 PM [facility]
--- NOTE | 2021-11-21 11:51 | DIET.NUTRFU ---
Rounded with Dr Baptiste today, plan is to intubate patient, he is still having respiratory difficulty. Pulmonary following. Continues on dextrose for hydration providing minimal calories. Nutritional needs are 1600-1700kcal and 70-80gm protein and 1900ml/day. Labs reviewed and improving: Na 153H (160), K 3.0 (3.5), BUN 42 (52), Cr 1.4 (1.5). Not feasible to put TF prior to intubation, patient pulls at everything and moves ariound a lot. Once intubated, would be beneficial to provide TF to help meet nutritional needs. Pulmocare with goal rate of 50ml/hr to provide 1150ml/1725kcal and 71gm protein and 902ml free water, minimal flush until IVF discontinued. RD will continue to follow
--- NOTE | 2021-11-21 11:56 | XR_ITS ---
FINAL REPORT CLINICAL HISTORY: left IJ deep line COMPARISON: 1 hour prior FINDINGS: A single view of the chest was obtained. There is a new left IJ deep line with its tip in the upper SVC. There is a new NG tube which courses below the diaphragm. The endotracheal tube and chest tube are in good position. The heart is normal in size. There are persistent pulmonary opacities and persistent left chest wall air. There is a small left apical pneumothorax. IMPRESSION: Small left apical pneumothorax. Persistent pulmonary opacities and left chest wall air. Left IJ deep line tip in the upper SVC. Reviewed, Interpreted and Dictated by Daren Alfonso III, MD Transcribed by Angela Ley Authenticated by Daren Alfonso III, MD on 11/21/2021 01:36:59 PM [facility]
--- NOTE | 2021-11-21 12:10 | HMH.PULMPN ---
Internal Medicine - PN: Subj *Date: 11/21/21 *Time: 12:10 Interval history: Patient respiratory is continued to decline overnight. Exam - Constitutional Constitutional:: Absent: no acute distress, comfortable - HENMT Exam HENMT: Present: normocephalic - Eye Exam Eyes:: Present: normal appearance both eyes and related structures - Neck Exam Neck:: Present: normal visual inspection - Respiratory Exam Respiratory:: Present: respiratory distress, crackles, rhonchi. Absent: able to speak in complete sentences - Cardiovascular Exam Cardiac:: Present: S1, S2 - GI Exam GI:: Present: soft - Skin Exam Skin: Present: warm - Neurological Exam Neurological: Absent: alert, awake, normal cognition - Extremities Exam Extremities: Present: no cyanosis, no clubbing, edema Assessment and Plan (1) Rapid atrial fibrillation Status: Acute Category: Medical Code(s): I48.91 - Unspecified atrial fibrillation (2) Hypernatremia Status: Acute Category: Medical Code(s): E87.0 - Hyperosmolality and hypernatremia (3) Hypovolemic shock Status: Acute Category: Medical Code(s): R57.1 - Hypovolemic shock (4) Closed head injury Status: Acute Qualifiers: Encounter type: initial encounter Qualified Code(s): S09.90XA - Unspecified injury of head, initial encounter Category: Medical Code(s): S09.90XA - Unspecified injury of head, initial encounter (5) Acute renal failure (ARF) Status: Acute Qualifiers: Acute renal failure type: unspecified Qualified Code(s): N17.9 - Acute kidney failure, unspecified Category: Medical Code(s): N17.9 - Acute kidney failure, unspecified (6) Aspiration pneumonia Status: Acute Category: Medical Code(s): J69.0 - Pneumonitis due to inhalation of food and vomit (7) Severe protein-calorie malnutrition Status: Acute Category: Medical Code(s): E43 - Unspecified severe protein-calorie malnutrition (8) Respiratory failure with hypoxia Status: Acute Qualifiers: Chronicity: acute Qualified Code(s): J96.01 - Acute respiratory failure with hypoxia Category: Medical Code(s): J96.91 - Respiratory failure, unspecified with hypoxia (9) PAF (paroxysmal atrial fibrillation) Status: Chronic Category: Medical Code(s): I48.0 - Paroxysmal atrial fibrillation (10) CAD (coronary artery disease) Status: Chronic Qualifiers: Coronary Disease-Associated Artery/Lesion type: [place] artery [place] vs. transplanted heart: [place] heart Associated angina: without angina Qualified Code(s): I25.10 - Atherosclerotic heart disease of [place] coronary artery without angina pectoris Category: Medical Code(s): I25.10 - Atherosclerotic heart disease of [place] coronary artery without angina pectoris (11) HTN (hypertension) Status: Chronic Qualifiers: Hypertension type: essential hypertension Qualified Code(s): I10 - Essential (primary) hypertension Category: Medical Code(s): I10 - Essential (primary) hypertension - Assessment and plan all Dx Assessment and Plan for all problems:: #Acute hypoxic respiratory failure: # CAP: #Hypernatremia: #Altered mentation 76-year-old, history obtained from chart review. Presented with altered mentation, acute hypoxic respiratory failure hypernatremia A. fib RVR. Leukocytosis on admission. Afebrile. Chest x-ray clear and with no acute pulmonary infiltrates. Sodium 170 on admission, within normal limits in September, unclear of acute or chronic onset. Corrected to 160 in 24 hours. Also noted to have VEGA on CKD, improved. Baseline creatinine 1.6-1.4 on his prior admissions. Patient new medications from his recent admission include Seroquel and sertraline. Patient was initiated on clindamycin and levofloxacin on admission. Sputum culture eventually grew staph already sensitive to clindamycin. His respiratory status continued to decline follow-up CT bilateral lower lobe dense consolidati
--- NOTE | 2021-11-21 12:20 | HMH.OPNOTE ---
Date of procedure: 11/21/21 Pre-op Diagnosis:: Inadequate venous access Post-op Diagnosis:: Inadequate venous access Left pneumothorax Procedure performed:: Left internal jugular vein triple-lumen catheter placement Left thoracostomy tube placement Surgeon:: Tyrese Hwang MD Anesthesia: local Estimated blood loss (mL): 5 Operative findings:: Left subclavian vein transiently accessed Left subclavian artery accessed but not dilated Air aspiration consistent with lung parenchymal injury Further attempts at left subclavian vein access aborted 28 [place] left thoracostomy tube placed 7 [place] triple-lumen catheter placed in left internal jugular vein Operative note:: Procedures deemed emergent; therefore, informed consent not obtained. The patient's left neck and chest was prepped and draped in a sterile fashion. After infiltration local anesthetic a large bore needle was utilized to access the left subclavian vein. Significant motion noted. The vein was only transiently-access. Additional attempts were made; however, arterial access noted. The artery was not dilated. On a final attempt air was aspirated (consistent with lung parenchymal injury). The patient's oxygen saturation declined and his lateral chest was prepped and draped for chest tube placement. A 28 [place] thoracostomy tube was placed without difficulty in the left fifth interspace (anterior clavicular line). The chest tube was secured at 17 cm with interrupted silk suture. Dressings were applied. The patient was then intubated and sedated as per pulmonology/critical care. Please see separate report for detail. His left neck was then prepped and draped in a sterile fashion. The left internal jugular vein was easily accessed. Utilizing a modified Seldinger technique, the 7 [place] triple-lumen catheter was placed in position and secured at 17 cm. Dressings were applied. Chest x-ray pending. Condition: critical Disposition: no change Specimens:: None Complications:: Left pneumothorax with attempted left subclavian vein triple-lumen catheter placement
--- NOTE | 2021-11-21 12:23 | PC.NURSE ---
1000: called surgical office for MD to insert deep line per primary team request. 1015: Dr Madsen @ [facility] to insert deep line. Left SC TLDL unsuccessful which resulted in left pneumo. Dr. Hwang inserted 24fr chest tube that is now to 20cm sx. 1055: LR bolus initiated per Dr. Mcdonald. He is @ the [facility] to emergently intubate. 1100: pt intubated by Dr. Mcdonald. Pt has 7.5 ETT that is 26 @ the lip. Vent settings: 100%, 16, 440, 10/-. Left nare NG inserted and is at 75cm. 1145: Dr. Hwang @ [facility] again and inserted left IJ TLDL.
--- NOTE | 2021-11-21 13:02 | HMH.PHACONS ---
- Pharmacy Consult Date: 11/21/21 Time: 13:02 Referring provider: DR. SCHNEIDER Reason for Consult:: VANCOMYCIN DOSING Allergies and ADEs:: Allergies Allergy/AdvReac Type Severity Reaction Status Date / Time No Known Allergies Allergy Verified 11/17/21 15:30 Home Medications:: Home Medications Medication Instructions Recorded Confirmed Type Apixaban [Eliquis] 5 mg PO BIDWMEAL 06/02/20 11/18/21 History Fenofibrate Nanocrystallized 48 mg PO DAILY 06/02/20 11/17/21 History [Fenofibrate] donepezil 5 mg tablet 10 mg PO DAILY tab 03/13/21 11/17/21 History sertraline 100 mg tablet 25 mg PO DAILY tab 03/13/21 11/17/21 History LORazepam [Ativan 0.5mg 0.5 mg PO Q8HP PRN 11/17/21 11/18/21 History tablet] Megestrol Acetate 400 mg PO DAILY 11/17/21 11/17/21 History Quetiapine Fumarate [Seroquel] 300 mg PO HS 11/17/21 11/17/21 History Acetaminophen 500 mg PO Q6HP PRN 11/18/21 11/18/21 History Aspirin [Aspirin 81mg chewable 81 mg PO DAILY 11/18/21 11/18/21 History tab] Divalproex Sodium [Depakote 750 mg PO BID 11/18/21 11/18/21 History Sprinkle 125mg capsule] Magnesium Hydroxide [Milk of 30 ml PO DAILYP PRN 11/18/21 11/18/21 History Magnesia] Metoprolol Tartrate [Lopressor 100 100 mg PO DAILY 11/18/21 11/18/21 History mg Tablets] lisinopriL [Lisinopril] 20 mg PO DAILY 11/18/21 11/18/21 History Height: 1.83 m Weight: 64.138 kg Laboratory Results:: Laboratory Results - last 24 hr 11/20/21 14:53: Sodium 156 H*, Potassium 3.5, Chloride 134 H, Carbon Dioxide 17 L, Anion Gap 8.5, BUN 41 H, Creatinine 1.20, Estimated Creat Clear 47, Estimated GFR 59, Est GFR ( Amer) 71, Glucose 111 H, Calcium 6.3 L 11/21/21 06:10: WBC 31.9 H* D, RBC 4.27 L, Hgb 11.9 L, Hct 38.3 L, MCV 89.8, MCH 27.9, MCHC 31.0 L, RDW 15.6, Plt Count 217 D, MPV 11.1 H, Neut % (Auto) 96.0 H, Lymph % (Auto) 1.5 L, [place] % (Auto) 1.9, Eos % (Auto) 0.2, Baso % (Auto) 0.4, Neut # (Auto) 30.6 H, Lymph # (Auto) 0.5 L, [place] # (Auto) 0.6, Eos # (Auto) 0.1, Baso # (Auto) 0.1, Total Counted 100, Neutrophils % (Manual) 87 H, Lymphocytes % (Manual) 8 L, Monocytes % (Manual) 5, Platelet Estimate Normal, Hypochromasia 1+ 11/21/21 06:10: Sodium 153 H*, Potassium 3.0 L, Chloride 128 H, Carbon Dioxide 19 L, Anion Gap 9.0, BUN 42 H, Creatinine 1.40 H, Estimated Creat Clear 41, Estimated GFR 49 L, Est GFR ( Amer) 60, Glucose 115 H, Calcium 6.8 L Medical History: Reports:: Atrial Fibrillation, Coronary Artery Disease, Hyperlipidemia, Hypertension Denies:: Diabetes Mellitus Type 1, Diabetes Mellitus Type 2, Seizures Assessment and Plan (1) Rapid atrial fibrillation Status: Acute Category: Medical Code(s): I48.91 - Unspecified atrial fibrillation (2) Hypernatremia Status: Acute Category: Medical Code(s): E87.0 - Hyperosmolality and hypernatremia (3) Hypovolemic shock Status: Acute Category: Medical Code(s): R57.1 - Hypovolemic shock (4) Closed head injury Status: Acute Qualifiers: Encounter type: initial encounter Qualified Code(s): S09.90XA - Unspecified injury of head, initial encounter Category: Medical Code(s): S09.90XA - Unspecified injury of head, initial encounter (5) Acute renal failure (ARF) Status: Acute Qualifiers: Acute renal failure type: unspecified Qualified Code(s): N17.9 - Acute kidney failure, unspecified Category: Medical Code(s): N17.9 - Acute kidney failure, unspecified (6) Aspiration pneumonia Status: Acute Category: Medical Code(s): J69.0 - Pneumonitis due to inhalation of food and vomit (7) Severe protein-calorie malnutrition Status: Acute Category: Medical Code(s): E43 - Unspecified severe protein-calorie malnutrition (8) Respiratory failure with hypoxia Status: Acute Qualifiers: Chronicity: acute Qualified Code(s): J96.01 - Acute respiratory failure with hypoxia Category: Medical Code(s): J96.91 - Respiratory failure, unspecified wit
[2021-11-21 13:09] LABS: Oxygen 75 %
[2021-11-21 13:10] LABS: PEEP 10; Source Right Radial; Tidal Volume 440; Vent Rate 16
--- NOTE | 2021-11-21 13:22 | PC.NURSE ---
daughter, son-in-law, and sister at [facility] speaking with Candice Yates.
--- NOTE | 2021-11-21 13:31 | HMH.ACPN2 ---
Internal Medicine - PN: Subj *Date: 11/21/21 *Time: 08:25 Interval history: pt has a increase work of breathing, abg obtained and bipap on Exam Vital signs and Labs for Last 24 Hours: Temp Pulse Resp BP Pulse Ox 97.5 F L 115 H 16 106/55 L 94 L 11/21/21 12:00 11/21/21 06:00 11/21/21 11:00 11/21/21 06:00 11/21/21 11:00 Laboratory Results - last 24 hr 11/20/21 14:53: Sodium 156 H*, Potassium 3.5, Chloride 134 H, Carbon Dioxide 17 L, Anion Gap 8.5, BUN 41 H, Creatinine 1.20, Estimated Creat Clear 47, Estimated GFR 59, Est GFR ( Amer) 71, Glucose 111 H, Calcium 6.3 L 11/21/21 06:10: WBC 31.9 H* D, RBC 4.27 L, Hgb 11.9 L, Hct 38.3 L, MCV 89.8, MCH 27.9, MCHC 31.0 L, RDW 15.6, Plt Count 217 D, MPV 11.1 H, Neut % (Auto) 96.0 H, Lymph % (Auto) 1.5 L, [place] % (Auto) 1.9, Eos % (Auto) 0.2, Baso % (Auto) 0.4, Neut # (Auto) 30.6 H, Lymph # (Auto) 0.5 L, [place] # (Auto) 0.6, Eos # (Auto) 0.1, Baso # (Auto) 0.1, Total Counted 100, Neutrophils % (Manual) 87 H, Lymphocytes % (Manual) 8 L, Monocytes % (Manual) 5, Platelet Estimate Normal, Hypochromasia 1+ 11/21/21 06:10: Sodium 153 H*, Potassium 3.0 L, Chloride 128 H, Carbon Dioxide 19 L, Anion Gap 9.0, BUN 42 H, Creatinine 1.40 H, Estimated Creat Clear 41, Estimated GFR 49 L, Est GFR ( Amer) 60, Glucose 115 H, Calcium 6.8 L 11/21/21 12:36: Specimen Source Right radial, O2 % 75, Blayne Test Not applicable, Vent Rate 16, Tidal Volume 440, PEEP 10 I & O for Last 24 hours: Intake & Output 11/19/21 11/20/21 11/21/21 11/22/21 11:59 11:59 11:59 11:59 Intake Total 4508 / 4508 3132 / 3132 3359 / 3359 Output Total 3825 / 3825 750 / 750 3100 / 3100 Balance 683 / 683 2382 / 2382 259 / 259 Weight 141 lb 1.533 oz 137 lb 141 lb 6.4 oz Microbiology Reports for the Last 24 Hours: Microbiology 11/19/21 11:10 Nose - Nasal MRSA Culture - Final 11/21/21 00:00 Sputum - Nasotracheal Suction Gram Stain - Final 11/18/21 14:10 Sputum - Nasotracheal Suction Gram Stain - Final 11/18/21 14:10 Sputum - Nasotracheal Suction Sputum Culture - Final Staphylococcus aureus - Constitutional mild distress, thin - *Routine HEENT Exam Head: Present: normocephalic Eye: Present: PERRL ENT: Present: mucous membranes moist - *Routine Neck Exam Present: supple. Absent: lymphadenopathy - *Routine Respiratory Exam Present: decreased breath sounds, rhonchi - *Routine Cardiovascular Exam Present: RRR - *Routine Abdominal Exam Present: soft, normoactive bowel sounds. Absent: tenderness - *Routine Extremities Exam Absent: cyanosis, clubbing, edema - *Routine Skin Exam Present: warm, ecchymosis. Absent: rash - *Routine Neurological Exam Present: alert, altered mental status Assessment and Plan (1) Rapid atrial fibrillation Status: Acute Category: Medical Code(s): I48.91 - Unspecified atrial fibrillation (2) Hypernatremia Status: Acute Category: Medical Code(s): E87.0 - Hyperosmolality and hypernatremia (3) Hypovolemic shock Status: Acute Category: Medical Code(s): R57.1 - Hypovolemic shock (4) Closed head injury Status: Acute Qualifiers: Encounter type: initial encounter Qualified Code(s): S09.90XA - Unspecified injury of head, initial encounter Category: Medical Code(s): S09.90XA - Unspecified injury of head, initial encounter (5) Acute renal failure (ARF) Status: Acute Qualifiers: Acute renal failure type: unspecified Qualified Code(s): N17.9 - Acute kidney failure, unspecified Category: Medical Code(s): N17.9 - Acute kidney failure, unspecified (6) Aspiration pneumonia Status: Acute Category: Medical Code(s): J69.0 - Pneumonitis due to inhalation of food and vomit (7) Severe protein-calorie malnutrition Status: Acute Category: Medical Code(s): E43 - Unspecified severe protein-calorie malnutrition (8) Respiratory failure with hypoxia Status: Acute Q
--- NOTE | 2021-11-21 13:40 | CT_ITS ---
PROCEDURE INFORMATION: Exam: CT Angiography Head With Contrast Exam date and time: 11/21/2021 4:59 PM Age: 76 years old Clinical indication: Other: AMS TECHNIQUE: Imaging protocol: Computed tomographic angiography of the head with contrast. 3D rendering (Not supervised by radiologist): MIP and/or 3D reconstructed images were created by the technologist. Radiation optimization: All CT scans at this facility use at least one of these dose optimization techniques: automated exposure control; mA and/or kV adjustment per patient size (includes targeted exams where dose is matched to clinical indication); or iterative reconstruction. Contrast material: ISOVUE 370; Contrast volume: 100 ml; Contrast route: INTRAVENOUS (IV); COMPARISON: CT HEAD/BRAIN WO CON 11/20/2021 12:37 PM FINDINGS: Limitations: The study is moderately limited due to patient motion artifact. ANTERIOR CIRCULATION: Right internal carotid artery: No definite occlusion. Right middle cerebral artery: The right M1 segment is patent. 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 However, this area is significantly limited by artifact. An MRI and MRA is recommended if there is continued clinical concern for an acute infarct. Right anterior cerebral artery: No definite occlusion. Left internal carotid artery: No definite occlusion. Left middle cerebral artery: No definite occlusion. Left anterior cerebral artery: No definite occlusion. 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 Left vertebral artery: No definite occlusion. Basilar artery: No definite occlusion. Right posterior cerebral artery: There is persistent origin of the right posterior cerebral artery. Left posterior cerebral artery: No definite occlusion. Mastoid air cells: Bilateral mastoid effusions are present. IMPRESSION: 1. Limited exam due to motion artifact 2. 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 However, this area is significantly limited by artifact. An MRI and MRA is recommended if there is continued clinical concern for an acute infarct.
[2021-11-21 13:44] LABS: ABG Base Excess -10.1 mmol/L (-2.4-2.3); ABG HCO3 19.4 mmhg (22.0-26.0); ABG Oxygen Saturation 81 % (90-100); ABG PO2 59.7 mmhg (80-100); ABG TCO2 21.3 mmhg (23-27)
[2021-11-21 13:55] LABS: ABG PH 7.11 mmol/L (7.35-7.45)
[2021-11-21 13:56] LABS: ABG PCO2 61.8 mmhg (35.0-45.0)
--- NOTE | 2021-11-21 14:06 | CT_ITS ---
PROCEDURE INFORMATION: Exam: CT Angiography Neck With Contrast Exam date and time: 11/21/2021 4:59 PM Age: 76 years old Clinical indication: Other: AMS TECHNIQUE: Imaging protocol: Computed tomography angiography of the neck with contrast. 3D rendering (Not supervised by radiologist): MIP and/or 3D reconstructed images were created by the technologist. Radiation optimization: All CT scans at this facility use at least one of these dose optimization techniques: automated exposure control; mA and/or kV adjustment per patient size (includes targeted exams where dose is matched to clinical indication); or iterative reconstruction. Contrast material: ISOVUE 370; Contrast volume: 100 ml; Contrast route: INTRAVENOUS (IV); COMPARISON: CT ANGIO CHEST PE PROTOCOL 11/20/2021 2:23 PM FINDINGS: Limitations: The study is mildly limited due to patient motion artifact. Right common carotid artery: No stenosis. No dissection or occlusion. Right internal carotid artery: No stenosis of the extracranial segment. No dissection or occlusion. Right external carotid artery: No occlusion or stenosis of the origin. Left common carotid artery: There is minimal atherosclerotic narrowing of the distal left common carotid artery. Left internal carotid artery: No stenosis of the extracranial segment. No dissection or occlusion. Left external carotid artery: No occlusion or stenosis of the origin. Right vertebral artery: The right vertebral artery is severely hypoplastic but patent. Left vertebral artery: There is severe stenosis of the left vertebral artery origin. The remaining left vertebral artery is unremarkable. Thyroid: A 3.5 cm left thyroid mass is present. A follow-up thyroid ultrasound is recommended. Bones/joints: Moderate degenerative changes of the cervical spine are present. Lungs: Extensive pulmonary consolidation is present. Infection or edema is possible. Pleural spaces: A tiny left pneumothorax is present. A left-sided chest tube is in place. IMPRESSION: 1. Extensive pulmonary consolidation is present. Infection or edema is possible. 2. 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 A tiny left pneumothorax is present. A left-sided chest tube is in place. 4. Chronic findings as discussed above. COMMENTS: Consistent with the [employer]'s Incidental Findings Committee white paper (J Am Samantha Radiol 2015): In patients aged 35 years and older with an incidental thyroid nodule equal to or greater than 1.[address], MRI or extrathyroidal US, further evaluation with dedicated thyroid US is recommended for patients with normal life expectancy and without comorbidities. For smaller nodules without suspicious features, no further evaluation or follow up is recommended. REFERENCES: NASCET CRITERIA. The degree of internal carotid artery stenosis is based on NASCET criteria. Normal is no stenosis. Mild is less than 50% stenosis. Moderate is 50-69% stenosis. Severe is 70% to 99% stenosis. Total occlusion is no detectable patent lumen.
--- NOTE | 2021-11-21 14:24 | PC.NURSE ---
2hr EEG at BS
--- NOTE | 2021-11-21 19:21 | PC.NURSE ---
report called to [facility] in [facility], [place]. Spoke to Sandy. Pt is going to [facility].
--- NOTE | 2021-11-21 19:38 | PC.NURSE ---
[facility] call for transport. Legal guardian (Domi) called and message left for her to call [facility]. Called daughter ([facility] [phone]) and updated her.
--- NOTE | 2021-11-21 20:39 | PC.NURSE ---
Flight team in room.
--- NOTE | 2021-11-21 20:57 | PC.NURSE ---
PT BEING TRANSFERRED VIA ST[facility] PER [facility] TO DIFFERENT FACILITY @ 2057
[2021-11-23 06:21] LABS: Peripheral Smear Review Scanned Result
--- NOTE | 2022-02-06 20:27 | [facility].DCSUM ---
General - General Admission date:: 11/17/21 Discharge date: 11/21/21 HPI HPI: this [facility] from [facility]. Reported to have been found with Howie-Clayton respirations with periods of apnea, rapid atrial fibrillation, low blood pressure and low pulse oximetry. Blood pressure reported to be 70s on EMS arrival. O2 sats 79% on EMS arrival. Fluid bolus started in transport and nonrebreather mask applied. Patient unable to provide any further history himself, nonverbal at this time. Nursing staff reports that jail reported that he had recently been admitted to a psychiatric facility and came to the jail on 11/09/2021. Since arriving there has been zonked , nonverbal. pt seen in this emergency department 2 days ago for a fall with facial injury. Reviewed emergency department note. Per emergency physician note the patient has a longstanding history of dementia and is nonverbal. Reviewed CT reports of face and head, negative. Reviewed most recent cardiology notes. Has paroxysmal atrial fibrillation. Attempted cardioversion 03/30/2021, unsuccessful. See note below. Amiodarone discontinued at that time. He is on Eliquis for anticoagulation. Metoprolol for rate control. Reviewed most recent heart cath and echocardiogram results, see below. pt with af ib wit rvr and had abn eletrolytes and required ivf and meds and will be admitted Hospital Course Hospital Course: On 11/21/2021 approximately 1500: Cardiology has seen and recommends: Plan: 1. This is a 76-year-old gentleman who was admitted to the hospital and found to be in atrial fibrillation with RVR. He remains on a diltiazem drip at this time for rate control since he is not taking oral medications. His heart rate remains in the low 100s to the 110s. He is tolerating the IV diltiazem well. 2. Consider PEG tube placement in this patient who is unable to take any oral medications. The patient cannot remain on IV antiarrhythmics indefinitely so he will need some sort of feeding tube in order to be able to give him rate control medications. But we will leave this up to his primary care team. 3. Coronary artery disease is present. He ruled out for an MA. His ejection fraction was preserved by echocardiogram. No plans for invasive left cardiac catheterization at this time. 4. His blood pressure is well controlled. 5. His LDL goal is less than 55. His LDL is less than 30 at this time. 6. His creatinine is stable at 1.4 today. 7. The patient is on a BiPAP mask today and will likely end up intubated and on the ventilator today due to his declining respiratory status. Will defer management of this to his primary care team and pulmonology. 8. The patient is still not following any commands or answering any questions. His prognosis is poor. 9. The patient remains on Lovenox for anticoagulation at this time. 10. Further recommendations were made pending the patient's response to treatment. Pulmonary has seen and recommends: #Acute hypoxic respiratory failure: # CAP: #Hypernatremia: #Altered mentation 76-year-old, history obtained from chart review. Presented with altered mentation, acute hypoxic respiratory failure hypernatremia A. fib RVR. Leukocytosis on admission. Afebrile. Chest x-ray clear and with no acute pulmonary infiltrates. Sodium 170 on admission, within normal limits in September, unclear of acute or chronic onset. Corrected to 160 in 24 hours. Also noted to have VEGA on CKD, improved. Baseline creatinine 1.6-1.4 on his prior admissions. Patient new medications from his recent admission include Seroquel and sertraline. Patient was initiated on clindamycin and levofloxacin on admission. Sputum culture eventually grew staph already sensitive to clindamycin. His respiratory status continued to decline follow-up CT bilateral lower lobe dense consolidation. Pleural update: Patient respiratory status cont
== END 2021-11-21 21:56 | disposition short-term general hospital (02) | DRG 208 ==
LOC: ER 16:24 → 2ND 23:12
PROVIDERS: Internal Medicine Pulmonary Disease; Nurse Practitioner Family; Admitting Provider Internal Medicine Adolescent Medicine; Emergency Provider Emergency Medicine; PCP Emergency Medicine; Visit Provider Emergency Medicine
DX: J96.01 Acute respiratory failure with hypoxia (principal); R57.1 Hypovolemic shock; E43 Unspecified severe protein-calorie malnutrition; J18.9 Pneumonia, unspecified organism; J69.0 Pneumonitis due to inhalation of food and vomit; N17.9 Acute kidney failure, unspecified; Z68.1 Body mass index [BMI] 19.9 or less, adult; E87.0 Hyperosmolality and hypernatremia; E86.0 Dehydration; S00.90XA Unspecified superficial injury of unspecified part of head, initial encounter; E78.5 Hyperlipidemia, unspecified; I25.10 Atherosclerotic heart disease of native coronary artery without angina pectoris; N18.9 Chronic kidney disease, unspecified; I12.9 Hypertensive chronic kidney disease with stage 1 through stage 4 chronic kidney disease, or unspecified chronic kidney disease; I48.0 Paroxysmal atrial fibrillation; W19.XXXA Unspecified fall, initial encounter; Z79.01 Long term (current) use of anticoagulants
CPT/HCPCS: 31500; 94002; 32551; 36558; 36415; 51702; 70450; 70486; 70496; 70498; 71045; 71275; 80048; 80053; 80061; 80076; 80164; 81001; 82140; 82550; 82803; 83605; 84484; 85007; 85025; 87040; 87070; 87077; 87081; 87086; 87186; 87205; 87486; 87581; 87632; 87798; 93005; 93306; 94660; 94760; 95822; 96365; 96367; 96375; 99291; C1751; C9803; J1205; J1953; J1956; J3370; Q9967; U0003; U0005